=== PATIENT | female | born 1975 | race Caucasian/White ===

== ENCOUNTER 2023-10-18 07:25 | Outpatient (CLI) | payer OTHER, SELFPAY ==
[2023-10-18 08:07] LABS: Basophils Percent Auto 0.3 % (0.2-1.2); Eosinophils Absolute Auto 0.4 K/mm3 (0-0.3); Eosinophils Percent Auto 2.8 % (0-4.4); Hematocrit 39.4 % (37.0-47.0); Hemoglobin 11.5 g/dL (12.0-15.0); Immature Granulocyte Absolute 0.05 K/mm3 (0.00-0.031); Immature Granulocyte Percent A 0.4 % (0-0.5); Lymphocytes Absolute Auto 3.04 K/mm3 (0.9-3.2); Lymphocytes Percent Auto 24.3 % (18.3-44.2); Mean Corpuscular HGB Conc 29.2 g/dl (32-36); Mean Corpuscular Hemoglobin 25.2 pg (26-34); Mean Corpuscular Volume 86.2 fl (80-100); Monocytes Absolute Auto 0.6 K/mm3 (0.1-0.6); Monocytes Percent Auto 4.9 % (2.6-8.5); Neutrophils Absolute Auto 8.4 K/mm3 (1.3-6.7); Neutrophils Percent Auto 67.3 % (45.5-73.1); Platelet Count Result 319 k/mm3 (150-375); Red Blood Count 4.57 M/mm3 (4.2-5.4); Red Cell Distribution Width 14.7 % (11.5-14.5); White Blood Count 12.5 K/mm3 (4.5-10.0)
[2023-10-18 08:14] LABS: Alanine Aminotransferase 42 U/L (6-35); Albumin Level 4.3 g/dL (3.5-5.1); Alkaline Phosphatase 100 U/L (38-126); Anion Gap 11 mmol/L (8-16); Aspartate Amino Transferase 38 U/L (14-36); Bilirubin,Total 0.5 mg/dL (0.2-1.3); Blood Urea Nitrogen 10 mg/dL (7-17); Calcium 9.4 mg/dL (8.4-10.2); Carbon Dioxide 25 mmol/L (22-30); Chloride 101 mmol/L (98-107); Cholesterol 136 mg/dL (0-200); Estimated Glomerular Filt Rate > 60; Glucose 171 mg/dL (65-110); HDL Direct 27 mg/dL; Potassium 4.5 mmol/L (3.4-5.0); Sodium 137 mmol/L (137-145); Triglycerides 172 mg/dL (<150)
[2023-10-18 08:25] LABS: LDL Cholesterol Direct 85 mg/dL
[2023-10-18 08:37] LABS: Creatinine Urine 68.8 mg/dL
[2023-10-18 08:42] LABS: Iron 42 ug/dL (37-170)
[2023-10-18 08:45] LABS: MALB Creatinine Ratio < 8.7 mg/g (0-30); Microalbumin Urine Random < 6.0 mg/L (0-16.7)
[2023-10-18 08:53] LABS: Vitamin D 25 Hydroxy 41.5 ng/mL
[2023-10-18 09:36] LABS: Hypochromasia 1+ (NORMAL); Platelet Estimate Adequate (Adequate); Schistocytes None Seen (NORMAL)
== END 2023-10-18 07:26 | disposition home or self-care (01) ==
PROVIDERS: PCP Student in an Organized Health Care Education/Training Program; Visit Provider Student in an Organized Health Care Education/Training Program
DX: Z00.00 Encounter for general adult medical examination without abnormal findings (principal); Z13.220 Encounter for screening for lipoid disorders; Z13.29 Encounter for screening for other suspected endocrine disorder; Z13.228 Encounter for screening for other metabolic disorders; Z13.0 Encounter for screening for diseases of the blood and blood-forming organs and certain disorders involving the immune mechanism; E55.9 Vitamin D deficiency, unspecified; E61.1 Iron deficiency; E11.40 Type 2 diabetes mellitus with diabetic neuropathy, unspecified
CPT/HCPCS: 36415; 80053; 80061; 82043; 82306; 82728; 83540; 84443; 85025

== ENCOUNTER 2023-11-13 08:07 | Outpatient (CLI) | payer OTHER, SELFPAY ==
--- NOTE | ~2023-11-13 | US_ITS ---
US right upper quadrant DATE: 11/13/2023 INDICATION: Elevated liver enzymes TECHNIQUE: Real-time imaging of liver, pancreas, common bile duct COMPARISON: None FINDINGS: History of cholecystectomy. There is hepatic steatosis. Normal hepatopedal portal venous flow direction. No hepatic or pancreatic space-occupying mass lesion is detected. No intrahepatic or extrahepatic bile duct dilatation. The common bile duct measures 4 mm. IMPRESSION: Hepatic steatosis Status post cholecystectomy Reviewed, dictated and finalized at Location [facility]. Reviewed, dictated and finalized at location L. OFFICER ASSISTANT
== END 2023-11-13 08:08 ==
LOC: MICIMG 08:08
PROVIDERS: PCP Student in an Organized Health Care Education/Training Program; Visit Provider Student in an Organized Health Care Education/Training Program
DX: R74.8 Abnormal levels of other serum enzymes (principal); K76.0 Fatty (change of) liver, not elsewhere classified; Z90.49 Acquired absence of other specified parts of digestive tract
CPT/HCPCS: 76705

== ENCOUNTER 2024-02-06 16:48 | Outpatient (CLI) | payer OTHER, SELFPAY ==
[2024-02-06 17:42] LABS: Basophils Absolute Auto 0.1 K/mm3 (0.0-0.1); Basophils Percent Auto 0.4 % (0.2-1.2); Eosinophils Absolute Auto 0.2 K/mm3 (0-0.3); Eosinophils Percent Auto 1.2 % (0-4.4); Hematocrit 38.3 % (37.0-47.0); Hemoglobin 11.7 g/dL (12.0-15.0); Immature Granulocyte Absolute 0.03 K/mm3 (0.00-0.031); Immature Granulocyte Percent A 0.2 % (0-0.5); Immature Reticulocyte Fraction 14.7 % (3.0-15.9); Lymphocytes Absolute Auto 4.79 K/mm3 (0.9-3.2); Lymphocytes Percent Auto 39.3 % (18.3-44.2); Mean Corpuscular HGB Conc 30.5 g/dl (32-36); Mean Corpuscular Hemoglobin 26.4 pg (26-34); Mean Corpuscular Volume 86.5 fl (80-100); Mean Platelet Volume 9.6 fl (7.4-10.4); Monocytes Absolute Auto 0.6 K/mm3 (0.1-0.6); Monocytes Percent Auto 5.2 % (2.6-8.5); Neutrophils Absolute Auto 6.5 K/mm3 (1.3-6.7); Neutrophils Percent Auto 53.7 % (45.5-73.1); Platelet Count Result 304 k/mm3 (150-375); Red Blood Count 4.43 M/mm3 (4.2-5.4); Red Cell Distribution Width 15.7 % (11.5-14.5); Reticulocyte Hemoglobin Conten 32.3 pg (28.2-36.6); Reticulocyte Percent 1.67 % (0.7-4.3); Reticulocytes Absolute 0.07 10^6/uL (0.02-0.10); White Blood Count 12.2 K/mm3 (4.5-10.0)
[2024-02-06 18:10] LABS: Alanine Aminotransferase 45 U/L (6-35); Albumin Level 4.5 g/dL (3.5-5.1); Alkaline Phosphatase 86 U/L (38-126); Anion Gap 8 mmol/L (4-12); Aspartate Amino Transferase 31 U/L (14-36); Bilirubin,Total 0.7 mg/dL (0.2-1.3); Blood Urea Nitrogen 11 mg/dL (7-17); Calcium 10.5 mg/dL (8.4-10.2); Carbon Dioxide 28 mmol/L (22-30); Chloride 103 mmol/L (98-107); Cholesterol 142 mg/dL (0-200); Estimated Glomerular Filt Rate > 60; Glucose 99 mg/dL (65-110); HDL Direct 32 mg/dL; Potassium 4.1 mmol/L (3.4-5.0); Sodium 139 mmol/L (137-145); Triglycerides 153 mg/dL (<150)
[2024-02-06 18:21] LABS: LDL Cholesterol Direct 91 mg/dL
[2024-02-06 19:52] LABS: Iron 60 ug/dL (37-170)
[2024-02-06 20:01] LABS: Percent Iron Saturation 19 % (20-50)
== END 2024-02-06 16:49 | disposition home or self-care (01) ==
PROVIDERS: PCP Student in an Organized Health Care Education/Training Program; Visit Provider Internal Medicine Hematology & Oncology
DX: E78.00 Pure hypercholesterolemia, unspecified (principal); D72.829 Elevated white blood cell count, unspecified; D64.9 Anemia, unspecified; E53.8 Deficiency of other specified B group vitamins; E61.1 Iron deficiency
CPT/HCPCS: 36415; 80053; 80061; 82607; 82728; 83540; 83550; 85025; 85046

== ENCOUNTER 2024-05-06 02:19 | Day surgery (SDC) | payer OTHER, SELFPAY ==
[2024-04-22 13:26] VITALS: BMI 40.3
[2024-05-06 13:08] VITALS: BP 140/62; PULSE 75; RESP 16; TEMP 36.3; O2SAT 100; BMI 41.0
--- NOTE | 2024-05-06 13:19 | P.PNAN_ITS ---
Anes - Initial Pre Proc Eval Procedure: Operation Date: 05/06/24 14:30 Proposed Procedures p Esophagogastroduodenoscopy & Colonoscopy - Dhruv Asencio MD Date/Time: 05/06/24 13:19 Surgeon: Dhruv Asencio MD Pre Op Diagnosis: Iron deficiency anemia unspecified, Deficiency of Patient Data Age: 48 Gender: F Height: 1.57 m Weight: 100 kg Allergies Allergy/AdvReac Type Severity Reaction Status Date / Time No Known Allergies Allergy Mild Verified 05/06/24 13:17 Home Medications Medication Instructions Recorded Confirmed Type atorvastatin 10 mg tablet 10 mg PO DAILY 03/13/24 05/06/24 History dulaglutide 3 mg/0.5 mL 3 mg subcut WEEKLY 03/13/24 05/06/24 History subcutaneous pen injector (Trulicity) glyburide 5 mg tablet 5 mg PO TID 03/13/24 05/06/24 History lisinopril 10 mg tablet 10 mg PO BID 03/13/24 05/06/24 History metformin 500 mg tablet 1,000 mg PO BID 03/13/24 05/06/24 History Patient hx anesthesia problems: none Family hx anesthesia problems: none Results Review: All pre-operative results and documents have been reviewed as part of the pre- operative evaluation. [facility] Past Medical History Medical History delivery delivered Cholecystectomy planned Diabetes GERD (gastroesophageal reflux disease) History of hypertension Sleep apnea Social History Social History Smoking status: Never smoker Alcohol intake: never Alcohol use details: social Substance use: never Substance use type: does not use Living arrangements: alone Spiritual care concerns: No Anes - Eval Final PreProcedure Day of Procedure 05/06/24 13:19 Patient weight: morbidly obese Heart: regular rate and rhythm Lungs: clear to auscultation Airway: Mallampati scale class III Neurological: alert and oriented Last oral intake: >/= 8 hours ASA classification: III Emergent: no Anesthetic plan: proceed Anesthesia type and monitoring: general GIVS and standard monitoring Results Review: All pre-operative results and documents have been reviewed as part of the pre- operative evaluation. Informed Consent: The patient's anesthetic plan and its attendant risks and benefits were discussed with the patient/family/POA. Questions were solicited and answers provided to the satisfaction of the patient/family/POA.
[2024-05-06 13:22] LABS: Glucose Point of Care 78 mg/dl (65-105)
[2024-05-06] MEDS: LACTATED RINGERS 1,000 ML 150 ML IV CONT (13:28)
--- NOTE | 2024-05-06 14:08 | PM.HPGS ---
History of Present Illness History of Present Illness Consent: Risks, benefits, and alternatives have been discussed and questions answered. Patient agrees to proceed with procedure. Chief complaint: Iron deficiency anemia unspecified, Deficiency of Narrative: Radha Gatica is a 48 year old female with mild NIDA, hgb 12, never had scopes, denies overt gib Review of Systems Review of Systems: All systems reviewed & are unremarkable except as noted in HPI and below PMFSH Past Medical History Medical History delivery delivered Cholecystectomy planned Diabetes GERD (gastroesophageal reflux disease) History of hypertension Sleep apnea Social History Social History Smoking status: Never smoker Alcohol intake: never Alcohol use details: social Substance use: never Substance use type: does not use Living arrangements: alone Spiritual care concerns: No Meds Home Medications and Allergies Home Medications Medication Instructions Recorded Confirmed Type atorvastatin 10 mg tablet 10 mg PO DAILY 03/13/24 05/06/24 History dulaglutide 3 mg/0.5 mL 3 mg subcut WEEKLY 03/13/24 05/06/24 History subcutaneous pen injector (Trulicity) glyburide 5 mg tablet 5 mg PO TID 03/13/24 05/06/24 History lisinopril 10 mg tablet 10 mg PO BID 03/13/24 05/06/24 History metformin 500 mg tablet 1,000 mg PO BID 03/13/24 05/06/24 History Allergies Allergy/AdvReac Type Severity Reaction Status Date / Time No Known Allergies Allergy Mild Verified 05/06/24 13:17 Vital Signs Vital Signs - 24 hr 05/06/24 13:08 Temperature 97.3 F L Pulse Rate 75 Respiratory Rate 16 Blood Pressure 140/62 Pulse Oximetry 100 Oxygen Delivery Room Air Exam Const: General: comfortable, no acute distress and obese HENMT: Face/Nose/Sinus: Normal nares present Eyes: General: appearance normal, both eyes and all related structures Neck: Neck: no JVD Resp: Auscultation: clear to auscultation bilaterally Cardio: Rate: regular rate Rhythm: regular rhythm GI: Inspection: non-distended GI Palp: Yes Soft to palpation Skin: General skin exam: normal color Neuro: General: gait normal Speech: normal speech Extrem: General: normal to inspection Psych: Mental Status: mental status grossly normal Assessment and Plan Assessment and plan (1) NIDA (iron deficiency anemia): Qualifiers: Iron deficiency anemia type: unspecified iron deficiency Qualified Code(s): D50.9 - Iron deficiency anemia, unspecified Code(s): D50.9 - Iron deficiency anemia, unspecified Status: Acute Assessment and Plan: scopes to assess if gi source (2) Encounter for screening colonoscopy: Code(s): Z12.11 - Encounter for screening for malignant neoplasm of colon Status: Acute
[2024-05-06] MEDS: BENZOCAINE (*SP) 60 ML SPRAY CAN (HURRICAINE) 1 SPRAY MUCOUS MEM (14:17)
--- NOTE | 2024-05-06 14:28 | SUR.OPER ---
EGD start 1419 end 1423, Colonoscopy start 1428
[2024-05-06 14:40] VITALS: BP 97/53; PULSE 72; RESP 29; O2SAT 100
[2024-05-06 14:50] VITALS: BP 100/50; PULSE 77; RESP 23; O2SAT 100
[2024-05-06 15:00] VITALS: BP 110/62; PULSE 75; RESP 18; O2SAT 100
== END 2024-05-06 15:11 | disposition home or self-care (01) ==
PROVIDERS: PCP Student in an Organized Health Care Education/Training Program; Referring Provider Nurse Practitioner Family; Visit Provider Internal Medicine Gastroenterology
PROC: 0DJ08ZZ Inspection of Upper Intestinal Tract, Via Natural or Artificial Opening Endoscopic (ICD-10-PCS; CPT 43235; principal; 2024-05-06 14:30)
DX: Z12.11 Encounter for screening for malignant neoplasm of colon (principal); D12.3 Benign neoplasm of transverse colon; K64.8 Other hemorrhoids; K29.50 Unspecified chronic gastritis without bleeding; D50.9 Iron deficiency anemia, unspecified; E11.9 Type 2 diabetes mellitus without complications; K21.9 Gastro-esophageal reflux disease without esophagitis; I10 Essential (primary) hypertension
CPT/HCPCS: 43239; 45385; 82948; 88305; J2001; J2704; J7120

== ENCOUNTER 2024-05-12 17:03 | Outpatient (CLI) | payer OTHER, SELFPAY ==
[2024-05-12 17:51] LABS: Basophils Percent Auto 0.4 % (0.2-1.2); Eosinophils Absolute Auto 0.2 K/mm3 (0-0.3); Eosinophils Percent Auto 2.3 % (0-4.4); Hematocrit 38.3 % (37.0-47.0); Immature Granulocyte Absolute 0.03 K/mm3 (0.00-0.031); Immature Granulocyte Percent A 0.3 % (0-0.5); Immature Reticulocyte Fraction 21.5 % (3.0-15.9); Lymphocytes Absolute Auto 4.06 K/mm3 (0.9-3.2); Lymphocytes Percent Auto 39.7 % (18.3-44.2); Mean Corpuscular HGB Conc 31.3 g/dl (32-36); Mean Corpuscular Hemoglobin 28.1 pg (26-34); Mean Corpuscular Volume 89.7 fl (80-100); Mean Platelet Volume 9.2 fl (7.4-10.4); Monocytes Absolute Auto 0.6 K/mm3 (0.1-0.6); Neutrophils Absolute Auto 5.3 K/mm3 (1.3-6.7); Neutrophils Percent Auto 51.3 % (45.5-73.1); Platelet Count Result 262 k/mm3 (150-375); Red Blood Count 4.27 M/mm3 (4.2-5.4); Red Cell Distribution Width 13.5 % (11.5-14.5); Reticulocyte Hemoglobin Conten 32.3 pg (28.2-36.6); Reticulocyte Percent 1.83 % (0.7-4.3); Reticulocytes Absolute 0.08 10^6/uL (0.02-0.10); White Blood Count 10.2 K/mm3 (4.5-10.0)
[2024-05-12 18:06] LABS: Alanine Aminotransferase 46 U/L (6-35); Albumin Level 4.4 g/dL (3.5-5.1); Alkaline Phosphatase 89 U/L (38-126); Anion Gap 11 mmol/L (4-12); Aspartate Amino Transferase 33 U/L (14-36); Bilirubin,Total 0.6 mg/dL (0.2-1.3); Blood Urea Nitrogen 11 mg/dL (7-17); Calcium 9.4 mg/dL (8.4-10.2); Carbon Dioxide 31 mmol/L (22-30); Chloride 99 mmol/L (98-107); Estimated Glomerular Filt Rate > 60; Glucose 201 mg/dL (65-110); Potassium 3.9 mmol/L (3.4-5.0); Sodium 141 mmol/L (137-145)
[2024-05-13 04:48] LABS: Iron 60 ug/dL (37-170)
== END 2024-05-12 17:04 | disposition home or self-care (01) ==
LOC: ANHLAB 17:06
PROVIDERS: PCP Student in an Organized Health Care Education/Training Program; Visit Provider Internal Medicine Hematology & Oncology
DX: E53.8 Deficiency of other specified B group vitamins (principal); D50.9 Iron deficiency anemia, unspecified
CPT/HCPCS: 36415; 80053; 82607; 82728; 83540; 85025; 85046

== ENCOUNTER 2024-08-30 09:25 | Outpatient (CLI) | payer OTHER, SELFPAY ==
[2024-08-30 10:22] LABS: Basophils Percent Auto 0.4 % (0.2-1.2); Eosinophils Absolute Auto 0.2 K/mm3 (0-0.3); Eosinophils Percent Auto 1.5 % (0-4.4); Hematocrit 42.4 % (37.0-47.0); Hemoglobin 13.5 g/dL (12.0-15.0); Immature Granulocyte Absolute 0.04 K/mm3 (0.00-0.031); Immature Granulocyte Percent A 0.4 % (0-0.5); Immature Reticulocyte Fraction 14.4 % (3.0-15.9); Lymphocytes Absolute Auto 3.83 K/mm3 (0.9-3.2); Lymphocytes Percent Auto 33.7 % (18.3-44.2); Mean Corpuscular HGB Conc 31.8 g/dl (32-36); Mean Corpuscular Hemoglobin 28.2 pg (26-34); Mean Corpuscular Volume 88.7 fl (80-100); Mean Platelet Volume 9.5 fl (7.4-10.4); Monocytes Absolute Auto 0.5 K/mm3 (0.1-0.6); Monocytes Percent Auto 4.1 % (2.6-8.5); Neutrophils Absolute Auto 6.8 K/mm3 (1.3-6.7); Neutrophils Percent Auto 59.9 % (45.5-73.1); Platelet Count Result 336 k/mm3 (150-375); Red Blood Count 4.78 M/mm3 (4.2-5.4); Red Cell Distribution Width 12.8 % (11.5-14.5); Reticulocyte Hemoglobin Conten 31.4 pg (28.2-36.6); Reticulocyte Percent 1.78 % (0.7-4.3); Reticulocytes Absolute 0.09 10^6/uL (0.02-0.10); White Blood Count 11.4 K/mm3 (4.5-10.0)
[2024-08-30 10:39] LABS: Alanine Aminotransferase 54 U/L (6-35); Albumin Level 4.5 g/dL (3.5-5.1); Alkaline Phosphatase 94 U/L (38-126); Anion Gap 11 mmol/L (4-12); Aspartate Amino Transferase 46 U/L (14-36); Bilirubin,Total 0.5 mg/dL (0.2-1.3); Blood Urea Nitrogen 11 mg/dL (7-17); Calcium 9.6 mg/dL (8.4-10.2); Carbon Dioxide 27 mmol/L (22-30); Chloride 102 mmol/L (98-107); Cholesterol 145 mg/dL (0-200); Estimated Glomerular Filt Rate > 60; Glucose 152 mg/dL (65-110); HDL Direct 32 mg/dL; Potassium 4.2 mmol/L (3.4-5.0); Sodium 140 mmol/L (137-145); Triglycerides 243 mg/dL (<150)
[2024-08-30 10:44] LABS: Creatinine Urine 86.2 mg/dL
[2024-08-30 10:50] LABS: LDL Cholesterol Direct 78 mg/dL
[2024-08-30 11:05] LABS: Iron 60 ug/dL (37-170)
[2024-08-30 11:11] LABS: MALB Creatinine Ratio < 7.0 mg/g (0-30); Microalbumin Urine Random < 6.0 mg/L (0-16.7)
[2024-08-30 11:11] LABS: Percent Iron Saturation 18 % (20-50)
== END 2024-08-30 09:26 | disposition home or self-care (01) ==
LOC: ANHLAB 09:32
PROVIDERS: PCP Student in an Organized Health Care Education/Training Program; Referring Provider Student in an Organized Health Care Education/Training Program; Visit Provider Internal Medicine Hematology & Oncology
DX: Z00.00 Encounter for general adult medical examination without abnormal findings (principal); Z13.220 Encounter for screening for lipoid disorders; Z13.29 Encounter for screening for other suspected endocrine disorder; Z13.228 Encounter for screening for other metabolic disorders; Z13.0 Encounter for screening for diseases of the blood and blood-forming organs and certain disorders involving the immune mechanism; E11.40 Type 2 diabetes mellitus with diabetic neuropathy, unspecified; D72.829 Elevated white blood cell count, unspecified; D64.9 Anemia, unspecified; E53.8 Deficiency of other specified B group vitamins; E61.1 Iron deficiency
CPT/HCPCS: 36415; 80053; 80061; 82043; 82306; 82607; 82728; 82784; 83540; 83550; 84443; 85025; 85046; 86364

== ENCOUNTER 2024-12-27 08:03 | Outpatient (CLI) | payer OTHER, SELFPAY ==
[2024-12-27 08:48] LABS: Basophils Percent Auto 0.4 % (0.2-1.2); Eosinophils Absolute Auto 0.7 K/mm3 (0-0.3); Eosinophils Percent Auto 6.1 % (0-4.4); Hematocrit 41.8 % (37.0-47.0); Hemoglobin 13.2 g/dL (12.0-15.0); Immature Granulocyte Absolute 0.04 K/mm3 (0.00-0.031); Immature Granulocyte Percent A 0.4 % (0-0.5); Lymphocytes Absolute Auto 3.23 K/mm3 (0.9-3.2); Mean Corpuscular HGB Conc 31.6 g/dl (32-36); Mean Corpuscular Hemoglobin 28.4 pg (26-34); Mean Corpuscular Volume 89.9 fl (80-100); Mean Platelet Volume 9.3 fl (7.4-10.4); Monocytes Absolute Auto 0.5 K/mm3 (0.1-0.6); Monocytes Percent Auto 4.4 % (2.6-8.5); Neutrophils Absolute Auto 6.6 K/mm3 (1.3-6.7); Neutrophils Percent Auto 59.7 % (45.5-73.1); Platelet Count Result 325 k/mm3 (150-375); Red Blood Count 4.65 M/mm3 (4.2-5.4); Red Cell Distribution Width 13.2 % (11.5-14.5); White Blood Count 11.1 K/mm3 (4.5-10.0)
[2024-12-27 08:54] LABS: Alanine Aminotransferase 54 U/L (6-35); Albumin Level 4.4 g/dL (3.5-5.1); Alkaline Phosphatase 100 U/L (38-126); Anion Gap 13 mmol/L (4-12); Aspartate Amino Transferase 44 U/L (14-36); Bilirubin,Total 0.6 mg/dL (0.2-1.3); Blood Urea Nitrogen 15 mg/dL (7-17); Calcium 9.7 mg/dL (8.4-10.2); Carbon Dioxide 26 mmol/L (22-30); Chloride 100 mmol/L (98-107); Estimated Glomerular Filt Rate > 60; Glucose 152 mg/dL (65-110); Potassium 4.3 mmol/L (3.4-5.0); Sodium 139 mmol/L (137-145)
[2024-12-27 09:04] LABS: Iron 57 ug/dL (37-170)
[2024-12-27 09:13] LABS: Percent Iron Saturation 16 % (20-50)
[2024-12-27 09:55] LABS: Folic Acid 14.8 ng/mL (2.76->20)
== END 2024-12-27 08:04 | disposition home or self-care (01) ==
PROVIDERS: PCP Student in an Organized Health Care Education/Training Program; Referring Provider Student in an Organized Health Care Education/Training Program
DX: D64.9 Anemia, unspecified (principal); D72.829 Elevated white blood cell count, unspecified; E53.8 Deficiency of other specified B group vitamins; R74.8 Abnormal levels of other serum enzymes
CPT/HCPCS: 36415; 80053; 82248; 82607; 82728; 82746; 83540; 83550; 85025

== ENCOUNTER 2025-06-01 16:43 | Outpatient (CLI) | payer OTHER, SELFPAY ==
--- OUTSIDE RECORDS SUMMARY | 2025-06-01 16:50 | XMS_ITS | Clinical Summary ---
Author Organization [facility] Address [address] [place] [address] Phone Care Team Providers Care Vp Customer Development Name Role Phone Ravi Spaulding Perfecto CASANOVA Primary Care Provider + Yeni Orellana MD Unavailable Allergies No known active allergies Medications metFORMIN (GLUCOPHAGE) 1000 MG Tablet TAKE 1 TABLET (1,000 MG TOTAL) BY MOUTH 2 (TWO) TIMES DAILY WITH MEALS 4 Active lisinopril (PRINIVIL, ZESTRIL) 10 MG Tablet Take 10 mg by mouth 2 times daily. 4 Active glyBURIDE (DIABETA) 5 MG Tablet TAKE 2 TABLETS BY MOUTH IN THE MORNING AND 1 TABLET IN THE EVENING WITH MEALS 3 Active atorvastatin (LIPITOR) 10 MG Tablet Take 1 Tablet by mouth nightly. 4 Active Ferrous Sulfate 325 (65 Fe) MG Tablet Delayed Response Take 1 Tablet by mouth daily. 3 Active dulaglutide (Trulicity) 3 MG/0.5ML Solution Pen-injector 3 mg by Subcutaneous route. 3 Active Cholecalciferol (VITAMIN D-3 PO) Take by mouth. Activ e Cyanocobalamin 1000 MCG Tablet Take 1,000 mcg by mouth daily. Active Blood Glucose Monitoring Suppl (ONE TOUCH ULTRA 2) w/Device Kit Check blood sugar once daily in AM when fasting 4 Active Glucose Blood Strip Check blood sugar once daily in AM when fasting 4 Active ONE TOUCH ULTRASOFT LANCETS Misc Check blood sugar once daily in AM when fasting 4 Active Active Problems Problem Noted Date Diagnosed Date Elevated blood pressure reading 09/18/2024 Iron deficiency anemia, unspecified 12/17/2023 Anemia 12/13/2023 Iron deficiency 12/13/2023 Hypertension Family History Medical History Relation Name Comments Cancer Father colon and prost ate Diabetes Father Multiple Sclerosis Father Cancer Paternal Grandfather lung Parkinsonism Paternal Grandmother Relation Name Status Comments Father Paternal Grandfather Paternal Grandmother Social History Tobacco Use Types Packs/Day Years Used Date Smoking Tobacco: Never Smokeless Tobacco: Never Tobacco Cessation:Counseling Given: Not Answered Alcohol Use Standard Drinks/Week Comments Never 0 (1 standard drink = 0.6 oz pur e alcohol) Comments Unknown Sex and Gender Information Value Date Recorded Sex Assigned at Not on file 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 Gender Identity Not on file Sexual Orientation Not on file Last Filed Vital Signs Vital Sign Reading Time Taken Comments Blood Pressure 130/74 01/15/2025 8:06 AM CDT Pulse 85 01/15/2025 8:06 AM CDT Temperature 36.6 C (97.8 F) 01/15/2025 8:06 AM CDT Respiratory Rate 18 01/15/2025 8:06 AM CDT Oxygen Saturation 96% 01/15/2025 8:06 AM CDT Inhaled Oxygen Concentration - - Weight 101.2 kg (223 lb) 01/15/2025 8:06 AM CDT Height 157.5 cm (5' 2) 01/15/2025 8:06 AM CDT Body Mass Index 40.79 01/15/2025 8:06 AM CDT Plan of Treatment Upcoming Encounters Date Type Department Care Team (Late st Contact Info) Description 07/16/2025 8:00 AM CDT [facility] Visit [facility] [address] [address] Yeni Orellana MD [address] [place] [address] [phone] Health Maintenance Due Date Last Done Comments Hepatitis B Immunization (1 of 3 - 19+ 3-dose series) 1992 HPV/Cotest 2003 Cologuard 2018 Colonoscopy 2018 Colorectal Cancer Screening 2018 Immunochemical Fecal Occult Blood 2018 Cervical Cancer Screening ([facility]S) 03/18/2024 Pap Smear 03/18/2024 03/18/2021 SARS-COV-2 Immunization (3 - season) 2024 05/22/2022, 04/20/2022 Zoster Immunization (2 of 2) 01/30/2025 12/05/2024 Influenza Immunization (#1) 06/29/202507/29, 07/28/2024, 08/24/2023, Additional history exists Mammogram 08/16/2025 08/16/2024, 07/29, 08/19/2022, Additional history exists Respiratory Syncytial Virus (RSV) Immunization (Adult) (1 - 1-dose 75+ series) 2048 Hepatitis C Virus (HCV) Screening Completed 06/28/2022 Pneumococcal Immunization (50+ years) Completed 04/24/2024, 12/24/2019 Pneumococcal Immunization Combined Discontinued 04/24/2024, 12/24/2019 DTaP/Tdap/Td Immunization Discontinued 07/22/2024, TdaP Immunization Completed 07/22/2024, 04/25/2014 Human Papillomavirus (HPV) Immunization Aged Out No longer eligible based on patient's age to complete this topic Meningococcal Immunization (ACWY) Aged Out No longer eligible based on patient's age to complete this topic Rotavirus Immunization Aged Out No lo nger eligible based on patient's age to complete this topic Insurance Care Teams Vp Customer Development Relationship Specialty Start Date End Date Ravi Spaulding DO [address] [place] [address] PCP - General Family Medicine 11/06/23 Yeni Orellana MD [address] [place] [id number] Consulting Physician Oncology 11/06/23
[2025-06-01 17:21] LABS: Hematocrit 39.9 % (37.0-47.0); Hemoglobin 12.4 g/dL (12.0-15.0); Immature Granulocyte Percent A 0.3 % (0-0.5); Lymphocytes Absolute Auto 4.59 K/mm3 (0.9-3.2); Mean Corpuscular HGB Conc 31.1 g/dl (32-36); Mean Corpuscular Hemoglobin 27.6 pg (26-34); Mean Corpuscular Volume 88.9 fl (80-100); Nucleated Red Blood Cells Absolute Auto 0.000 K/mm3 (0.0-0.012); Nucleated Red Blood Cells Perc 0.0 % (0.0-0.2); Platelet Count Result 319 k/mm3 (150-375); Red Blood Count 4.49 M/mm3 (4.2-5.4); White Blood Count 12.4 K/mm3 (4.5-10.0)
[2025-06-01 17:36] LABS: Alanine Aminotransferase 73 U/L (6-35); Albumin Level 4.4 g/dL (3.5-5.1); Alkaline Phosphatase 79 U/L (38-126); Anion Gap 12 mmol/L (4-12); Aspartate Amino Transferase 48 U/L (14-36); Bilirubin,Total 0.4 mg/dL (0.2-1.3); Blood Urea Nitrogen 8 mg/dL (7-17); Calcium 9.9 mg/dL (8.4-10.2); Carbon Dioxide 29 mmol/L (22-30); Chloride 101 mmol/L (98-107); Cholesterol 198 mg/dL (0-200); Estimated Glomerular Filt Rate > 60; Glucose 149 mg/dL (65-110); HDL Direct 31 mg/dL; Potassium 3.7 mmol/L (3.4-5.0); Sodium 142 mmol/L (137-145); Total Protein 8.3 g/dL (6.3-8.2); Triglycerides 249 mg/dL (<150)
[2025-06-01 18:06] LABS: MALB Creatinine Ratio 11.5 mg/g (0-30)
[2025-06-01 18:16] LABS: Thyroid Stimulating Hormone Reflex 2.760 uIU/mL (0.465-4.68)
== END 2025-06-01 16:44 | disposition home or self-care (01) ==
LOC: ANHLAB 16:48
PROVIDERS: PCP Student in an Organized Health Care Education/Training Program; Visit Provider Student in an Organized Health Care Education/Training Program
DX: E11.40 Type 2 diabetes mellitus with diabetic neuropathy, unspecified (principal); E55.9 Vitamin D deficiency, unspecified; Z00.00 Encounter for general adult medical examination without abnormal findings; Z13.0 Encounter for screening for diseases of the blood and blood-forming organs and certain disorders involving the immune mechanism; Z13.220 Encounter for screening for lipoid disorders; Z13.228 Encounter for screening for other metabolic disorders; Z13.29 Encounter for screening for other suspected endocrine disorder
CPT/HCPCS: 36415; 80053; 80061; 82043; 82306; 84443; 85025

== ENCOUNTER 2025-06-30 16:40 | Outpatient (CLI) | payer OTHER, SELFPAY ==
--- OUTSIDE RECORDS SUMMARY | 2025-06-30 16:50 | XMS_ITS | Encounter Summary ---
Author Organization [facility] Address [facility] [place] [address] Care Team Providers Care Panel Edge Painter Name Role Phone Ravi Spaulding DO Primary Care Provider + Encounter Details Date Type Department Care Team (Late st Contact Info) Description 02/13/2022 [employer] Message Enc [facility] Family & Internal Medicine [facility] [address] [place] [address] Ravi Spaulding DO [address] [place] [address] Cpap Social History Tobacco Use Types Packs/Day Years Used Date Smoking Tobacco: Never Smokeless Tobacco: Never Alcohol Use Standard Drinks/Week Comments Yes 0 (1 standard drink = 0.6 oz pur e alcohol) ON OCCASION AUDIT-C Answer Date Recorded Frequency of Alcohol Consumption Monthly or less 10/30/2019 Average Number of Drinks 1 or 2 020 Frequency of Binge Drinking Never 11/2019 PHQ-2 Answer Date Recorded PHQ-2 Score - If the patient scores above 3, please move on to questions 3-9 0 01/17/2022 Comments No Sex and Gender Information Value Date Recorded Sex Assigned at Female 10/30/2019 4:05 PM REVIEW COORDINATOR Legal Sex Female 7:47 PM CDT Gender Identity Female 10/30/2019 4:05 PM REVIEW COORDINATOR Sexual Orientation Straight 10/30/2019 4: 05 PM REVIEW COORDINATOR 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 No / Unsure 01/26/2022 4:59 PM CDT documented as of this encounter Plan of Treatment Upcoming Encounters Date Type Department Care Team (Late st Contact Info) Description 07/15/2025 7:20 AM CDT Office Visit [facility] - [place] [address] [place] [address] Ravi Spaulding DO [address] [place] [address] 09/29/2025 8:20 AM REVIEW COORDINATOR Office Visit [facility] [address] [place] [address] Geovanny Rocha [address] [place] [address] documented as of this encounter Visit Diagnoses Not on filedocumented in this encounter Additional Health Concerns Assessment Noted Time PHQ-9 Depression Total Score: 0 01/18/20 22 7:14 AM CDT documented as of this encounter Care Teams Panel Edge Painter Relationship Specialty Start Date End Date Ravi Spaulding DO [address] [place] [id number] PCP - General FAMILY PRACTICE 12/24/19 documented as of this encounter
--- OUTSIDE RECORDS SUMMARY | 2025-06-30 16:50 | XMS_ITS | Encounter Summary ---
Author Organization [facility] Address [facility] [place] [address] Care Team Providers Care Carver And Checkerer Specials Name Role Phone Ravi Spaulding DO Primary Care Provider + Encounter Details Date Type Department Care Team (Late st Contact Info) Description 12/10/2022 [employer] Message Enc [facility] Family & Internal Medicine [facility] [address] [place] [phone] Ravi Spualding DO [address] [place] [address] Iron supplement Social History Tobacco Use Types Packs/Day Years [...] 3, please move on to questions 3-9 1 08/11/2022 Comments No Sex and Gender Information Value Date Recorded Sex Assigned at Female 10/30/2019 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 No / Unsure 11/10/2022 7:53 AM HOTEL ASSOCIATE documented as of this encounter Plan of Treatment Upcoming Encounters Date Type Department Care Team (Late st Contact Info) Description 07/15/2025 7:20 AM CDT Office Visit [facility] Family & Internal Medicine - [place] [address] [place] [address] Ravi Spaulding DO [address] [place] [address] 09/29/2025 8:20 AM HOTEL ASSOCIATE Office Visit [facility] - [facility] [address] [place] [address] Geovanny Rocha [address] [place] [address] documented as of this encounter Visit Diagnoses Not on filedocumented in this encounter Additional Health Concerns Assessment Noted Time PHQ-9 Depression Total Score: 1 08/11/20 22 8:42 AM CDT documented as of this encounter Care Teams Carver And Checkerer Specials Relationship Specialty Start Date End Date Ravi Spaulding DO [address] [place] [id number] PCP - General FAMILY PRACTICE 12/24/19 documented as of this encounter
--- OUTSIDE RECORDS SUMMARY | 2025-06-30 16:50 | XMS_ITS | Clinical Summary ---
Author Organization [facility] Address [address] [place] [address] Care Team Providers Care Bevel Mill Operator Name Role Phone Carlos Eduardo Wong Primary Care Provider + Allergies No known active allergies Medications ferrous sulfate EC 325 (65 Fe) MG tabletIndicatio ns:Iron deficiency TAKE 1 TABLET BY MOUTH EVERY DAY 30 tablet 2 01/25/2023 Active vitamin D3 (CHOLECALCIFERO L) 25 mcg tablet Take 2 tablets (2,000 Units total) by mouth daily. Active Glucose Blood test stripIndication s:Type 2 diabetes mellitus with diabetic neuropathy, without long-term current use of insulin ([facility]) Check blood sugar once daily in AM when fasting 100 strip 11 07/22/2024 Active Blood Glucose Monitoring Suppl (ONE TOUCH ULTRA 2) w/Device KitIndications: Type 2 diabetes mellitus with diabetic neuropathy, without long-term current use of insulin ([facility]) Check blood sugar once daily in AM when fasting 1 kit 07/22/2024 Active Lancets (ONETOUCH ULTRASOFT) lancetsIndicati ons:Type 2 diabetes mellitus with diabetic neuropathy, without long-term current use of insulin ([facility]) Check blood sugar once daily in AM when fasting 1 each 11 07/22/2024 Active glyBURIDE (DIABETA) 5 MG tabletIndicatio ns:Type 2 diabetes mellitus with diabetic neuropathy, without long-term current use of insulin ([facility]) TAKE 2 TABLETS BY MOUTH IN THE MORNING AND 1 TABLET IN THE EVENING WITH MEALS 270 tablet 1 11/14/2024 Active vitamin B-12 (CYANOCOBALAMIN ) (CYANOCOBALAMIN ) 1000 mcg tablet Take 1 tablet (1,000 mcg total) by mouth daily. Active lisinopril (PRINIVIL) 10 MG tabletIndicatio ns:HTN (hypertension) TAKE 1 TABLET BY MOUTH TWICE A DAY 180 tablet 3 01/07/2025 Active metFORMIN (GLUCOPHAGE) 1000 MG tabletIndicatio ns:Type 2 diabetes mellitus with diabetic neuropathy, without long-term current use of insulin ([facility]) TAKE 1 TABLET BY MOUTH TWICE A DAY WITH FOOD 60 tablet 2 05/04/2025 Active TRULICITY 3 MG/0.5ML injectionIndica tions:Type 2 diabetes mellitus with diabetic neuropathy, without long-term current use of insulin ([facility]) INJECT 3 MG UNDER THE SKIN ONCE PER WEEK 2 mL 2 05/12/2025 Active Active Problems Problem Noted Date Diagnosed Date B12 deficiency 01/23/2024 Iron deficiency anemia, unspecified 12/17/2023 Vitamin D deficiency 06/07/2020 BMI 40.0-44.9, adult 05/17/2020 Type 2 diabetes mellitus wit h diabetic neuropathy, without long-term current use of insulin ([facility]) 10/06/2019 Elevated transaminase level 09/10/2017 Acid reflux 09/07/2017 Vasovagal syncope 10/09/2016 Locking finger joint 07/09/2015 Hypertension 01/09/2014 Hypercholesterolemia 01/09/2014 Obese 01/09/2014 Resolved Problems Problem Noted Date Diagnosed Date Resolved Date Toenail fungus 10/06/2019 01/19/2023 Encounters Date Type Department Care Team Description 06/04/2025 Telephone [facility] Family & Internal Medicine [address] [address] Carlos Eduardo Wong, DO Appointment Reminder 06/02/2025 MyChart Message Enc [facility] Family & Internal Medicine [address] [address] Carlos Eduardo Wong, DO Labs for upcoming appointment 06/01/2025 Scan [employer]ideJar SRVCS Scanned, Doc Med Group Lab (SCAN) 04/30/2025 Telephone [facility] Pulmonology Specialty Clinic [facility] [address] [place] [address] Geovanny Rocha DO Reschedule from Last 3 Months Immunizations Immunization Administration Dates Next Due Fluzone 6 Months+ Quad (0.5 mL Prefilled Syringe) 08/29/2022,10/06/2019 Influenza (Generic) 08/08/2024,08/14/2016,2014 Influenza Adult (Generic) 07/28/2024,11/2022,07/24/2020,2017,09/07/2017 PFIZER COVID-19 (COLON CAP), MRNA, LNP-S, PF, 30 MCG/0.3 ML TERRANCE-SUCROSE, IM 05/22/2022,04/20/2022 PFIZER COVID-19 (ORIGINAL FORMULATION, PURPLE CAP) mRNA, LNP-S, PF, 30 MCG/0.3 ML DOSE 05/22/2022 Pneumococcal (Pneumovax 23) 12/24/2019 Pneumococcal (Prevnar 20) 04/24/2024 Shingrix 03/10/2025,12/05/2024 Tdap (Adacel) 07/22/2024 Tdap (Generic) 04/25/2014 Family History Medical History Relation Comments Colon Cancer Father Diabetes Father Multiple Sclerosis Father Prostate Cancer Father No Known Problems Mother Lung Cancer Paternal Grandfather Parkinson's Disease Paternal Grandmother Relation Status Comments Father Alive Mother Alive Paternal Grandfather Paternal Grandmother Social History Tobacco Use Types Packs/Day Years Used Date Smoking Tobacco: Never Passive Smoke Exposure: Never Smokeless Tobacco: Never Tobacco Cessation:Counseling Given: No Alcohol Use Standard Drinks/Week Comments Not Currently 0 (1 standard drink = 0.6 oz pur e alcohol) ON OCCASION AUDIT-C Answer Date Recorded Frequency of Alcohol Consumption Monthly or less 10/30/2019 Average Number of Drinks 1 or 2 020 Frequency of Binge Drinking Never 11/2019 PHQ-2 Answer Date Recorded Patient Health Questionnaire-2 Score 0 12/05/2024 Comments No Sex and Gender Information Value Date Recorded Sex Assigned at Female 10/30/2019 4:05 PM MEDTRONICS TECHNICIAN Legal Sex Female 7:47 PM CDT Gender Identity Female 10/30/2019 4:05 PM MEDTRONICS TECHNICIAN Sexual Orientation Straight 10/30/2019 4: 05 PM MEDTRONICS TECHNICIAN 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 file Last Filed Vital Signs Vital Sign Reading Time Taken Comments Blood Pressure 112/62 03/10/2025 7:18 AM CDT Pulse 90 03/10/2025 7:18 AM CDT Temperature 36.6 C (97.9 F) 03/10/2025 7:18 AM CDT Respiratory Rate 16 03/10/2025 7:18 AM CDT Oxygen Saturation 98% 03/10/2025 7:18 AM CDT Inhaled Oxygen Concentration - - Weight 100.9 kg (222 lb 8 oz) 03/10/2025 7:18 AM CDT Height 157.5 cm (5' 2) 03/10/2025 7:18 AM CDT Body Mass Index 40.7 03/10/2025 7:18 AM CDT Plan of Treatment Upcoming Encounters Date Type Department Care Team (Late st Contact Info) Description 07/15/2025 7:20 AM CDT Office Visit [facility] Family & Internal Medicine - [place] [address] [place] [address] Carlos Eduardo Wong DO [address] [place] [address] 09/29/2025 8:20 AM MEDTRONICS TECHNICIAN Office Visit [facility] - [facility] [address] [place] [address] Geovanny Rocha DO [address] [place] [address] Health Maintenance Due Date Last Done Comments Kidney Health Evaluation 1973 Hepatitis B Vaccines (1 of 3 - 19+ 3-dose series) 1992 Annual Physical 12/24/2020 12/24/2019 Lipid Panel 06/13/2023 06/13/2022, 08/0 12/2020, 11/26/2020, Additional history exists Cervical Cancer Screening Pap Smear (Age 30 to 64) Every 3 Years 03/18/2024 03/18/2021 Diabetes: Retinopathy Eye Exam 12/31/2024 01/01/2024, 12/12/2022, 09/08/2021, Additional history exists Mammogram Screening 08/16/2025 08/16/2024, 08/19/2022, 07/16/2021, Additional history exists Hemoglobin A1C 09/10/2025 03/10/2025, 02/0 04/2025, 09/04/2024, Additional history exists COVID-19 Vaccine (3 - Pfizer risk series) 03/10/2026 05/22/2022, 05/22/2022, 04/20/2022 Postponed from 06/19/2022 (Patient Refused) Cervical Cancer Screening Pap with HPV Testing (Age 30 to 64) Every 5 Years 03/18/2026 03/18/2021, 02/28/2018, 02/27/2018 Cervical Cancer Screening with HPV 03/18/2026 Colorectal Cancer Screening Colonoscopy (10 Years) 05/06/2029 05/06/2024 DTaP, Tdap and Td Vaccines (3 - Td or Tdap) 07/22/2034 07/22/2024, 04/25/2014 Colorectal Cancer Screening FIT-DNA (3 Years) Discontinued 02/01/2022, 02/01/2022 Hepatitis C Completed 06/28/2022 Pneumococcal Vaccine: 50+ Years Completed 04/24/2024, 12/24/2019 PHQ-2 (Physician [place]) Completed 12/05/2024 Zoster Vaccines Completed 03/10/2025, 12/05/2024 Meningococcal B Vaccine Aged Out No l onger eligible based on patient's age to complete this topic Meningococcal Vaccine Aged Out No adela kj eligible based on patient's age to complete this topic RSV Immunizations Under 20 Months Aged Out No longer eligible based on patient's age to complete this topic Procedures Procedure Name Priority Date/Time Associated Diagnosis Comments OUTSIDE LAB (SCAN ORDER) 06/01/2025 OUTSIDE LAB (SCAN ORDER) 06/01/2025 OUTSIDE LAB (SCAN ORDER) 06/01/2025 ALBUMIN URINE RANDOM W/CREATININE Routine 06/01/2025 Type 2 diabetes mellitus with diabetic neuropathy, without long-term current use of insulin (CMS/HCC HHS/HCC) Screening for lipid disorders Screening for endocrine, metabolic and immunity disorder Annual physical exam HEMOGLOBIN, GLYCOSYLATED Routine 03/10/2025 Type 2 diabetes mellitus with diabetic neuropathy, without long-term current use of insulin (CMS/HCC HHS/HCC) MG SCREENING W ZELALEM MARK DIGI Routine 08/16/2024 2:14 PM CDT Encounter for screening mammogram for malignant neoplasm of breast COLONOSCOPY GENERIC (SCAN ORDER) 05/06/2024 DIABETIC RETINOPATHY EXAM (POSITIVE)(SCAN ORDER) Routine 01/01/2024 HEPATITIS C ANTIBODY W/RFX TO HCV RNA Routine 06/28/2022 7:22 AM CDT Need for hepatitis C screening test LIPID PANEL Routine 06/13/2022 7:15 AM CDT Screening for lipid disorders Annual physical exam COLOGUARD (EXACT SCIENCE) Routine 02/01/2022 7:23 AM CDT Screening for colon cancer HPV MRNA E6/E7 Routine 03/18/2021 8:31 AM CDT CYTOPATH CERV/VAG THIN LAYER Routine 03/18/2021 8:31 AM CDT Well woman exam from Last 3 Months or Most Recently Relevant to Health Maintenance Results * OUTSIDE LAB (SCAN ORDER) (06/01/2025) Only the most recent of3 resultswithin the time period is included. 06/01/2025 [facility] Scanned SCANNING Final Resu lt * ALBUMIN URINE RANDOM W/CREATININE (06/01/2025) MICROALBUMIN (U) 14.4 [facility] CREATININE RANDOM (U) 125.2 [facility] MICROALB/CREAT 11.5 [facility] URINE SPECIMEN / Unknown 06/01/2025 us Carlos Eduardo Wong DO URINE ORDERABLES Final R esult Performing Organization Address City/[facility]/ZIP Co de Phone Number [facility] * HEMOGLOBIN, GLYCOSYLATED (03/10/2025) HGB A1C 6.9 % [facility] 03/10/2025 us Carlos Eduardo Wong DO LABORATORY Final Re sult Performing Organization Address City/[facility]/ZIP Co de Phone Number [facility] [address] [place] [address], [place] * MG SCREENING W ZELALEM MARK DIGI (08/16/2024 2:14 PM CDT) Anatomical Region Laterality Modality Breast Bilateral Mammography 08/18/2024 11:0 3 AM CDT Impressions 08/18/2024 11:05 AM CDT IMPRESSION: No suspicious mammographic findings. Recommendation: 1. Routine Screening, Bilateral Assessment: ACR BI-RADS 1 - NEGATIVE Ordered By: CARLOS EDUARDO WONG Interpreted By: Tommie Giron MD, 08/18/2024 11:03 AM Narrative 08/18/2024 11:05 AM CDT [address] [address] Examination: Screening bilateral mammogram Exam Date: 08/16/2024 1:58 PM Clinical history: Routine screening. Comparison: 08/19/2022, 07/16/2021 Technique: Digital screening mammography of both breasts was performed. Breast tomosynthesis acquisitions were obtained and reviewed. This study was read with the assistance of a computer-aided detection system. Tissue density: There are scattered areas of fibroglandular density. Findings: No suspicious masses, malignant appearing calcifications, skin thickening or other abnormalities are present. No significant change from the prior exam. Carlos Eduardo Wong DO MAMMO Final Re sult * COLONOSCOPY GENERIC (SCAN ORDER) (05/06/2024) 05/06/2024 [facility] Scanned SCANNING Final Resu lt * DIABETIC RETINOPATHY EXAM (POSITIVE) (01/01/2024) [facility] Scanned SCANNING Final Resu lt [facility] * HEPATITIS C ANTIBODY W/RFX TO HCV RNA ([facility] ONLY) (06/28/2022 7:22 AM CDT) HEPATITIS C AB NON-REACTI VE NON-REACT CATHY [facility] SIGNAL TO CUTOFF 0.04 <[address] [facility] Comment: HCV antibody was non-reactive. There is no laboratory evidence of HCV infection. In most cases, no further action is required. However, if recent HCV exposure is suspected, a test for HCV RNA (test code 23202) is suggested. For additional information please refer to http://education.Prong/faq/SEY71u6 (This link is being provided for informational/ educational purposes only.) 06/28/2022 7:22 AM CDT 06/29/2022 9:11 AM CDT Carlos Eduardo Wong DO LABORATORY Final Re sult [facility] [address] [place] [address] * (ABNORMAL) LIPID PANEL (06/13/2022 7:15 AM CDT) CHOLESTEROL 114 <200 mg/dL [facility] HDL 30(L) > OR = 50 mg/dL [facility] TRIGLYCERIDES 136 <150 mg/dL [facility] LDL (CALCULATED) 62 mg/dL (calc) [facility] Comment: Reference range: <100 Desirable range <100 mg/dL for primary prevention; <70 mg/dL for patients with CHD or diabetic patients with > or = 2 CHD risk factors. LDL-C is now calculated using the Iam-Dsouza calculation, which is a validated novel method providing better accuracy than the Friedewald equation in the estimation of LDL-C. Iam JOHNSON et al. ANÍBAL. 2013;310(19): 5264-1322 (http://education.[employer] Spark Technologies/faq/WDX148) CHOL/HDL RATIO 3.8 <5.0 (calc) [facility] NON HDL CHOLESTEROL 84 <130 mg/dL (calc) [facility] Comment: For patients with diabetes plus 1 major ASCVD risk factor, treating to a non-HDL-C goal of <100 mg/dL (LDL-C of <70 mg/dL) is considered a therapeutic option. 06/13/2022 7:15 AM CDT 06/14/2022 7:21 AM CDT Carlos Eduardo Wong DO LABORATORY Final Re sult [facility] [address] [place] [address] * COLOGUARD ([employer] SCIENCE) (02/01/2022 7:23 AM CDT) COLOGUARD RESULT Negative Negative [facility] [employer] (CLIA #:[id number]) Comment: NEGATIVE TEST RESULT. A negative Cologuard result indicates a low likelihood that a colorectal cancer (CRC) or advanced adenoma (adenomatous polyps with more advanced pre-malignant features) is present. The chance that a person with a negative Cologuard test has a colorectal cancer is less than 1 in 1500 (negative predictive value >99.9%) or has an advanced adenoma is less than 5.3% (negative predictive value 94.7%). These data are based on a prospective cross-sectional study of 10,000 individuals at average risk for colorectal cancer who were screened with both Cologuard and colonoscopy. (Renae Casas, N Engl J Med 2014;370(14):5467-5963) The normal value (reference range) for this assay is negative. COLOGUARD RE-SCREENING RECOMMENDATION: Periodic colorectal cancer screening is an important part of preventive healthcare for asymptomatic individuals at average risk for colorectal cancer. Following a negative Cologuard result, the [place] Cancer Society and U.S. Multi-Society Task Force screening guidelines recommend a Cologuard re-screening interval of 3 years. References: [place] Cancer Society Guideline for Colorectal Cancer Screening: https://www.cancer.org/cancer/mqgwr-sltwxa-gjdcad/qjrzgghwo-tpaaozpoi-uuuyvwj/ac s-rec ommendations.html.; Teja DK, Eugenio HONG, Hair SuárezK, Colorectal Cancer Screening: Recommendations for Physicians and Patients from the U.S. Multi-Society Task Force on Colorectal Cancer Screening , Am J Gastroenterology 2017; 112:4218-2490. TEST DESCRIPTION: Composite algorithmic analysis of stool DNA-biomarkers with hemoglobin immunoassay. Quantitative values of individual biomarkers are not reportable and are not associated with individual biomarker result reference ranges. Cologuard is intended for colorectal cancer screening of adults of either sex, 45 years or older, who are at average-risk for colorectal cancer (CRC). Cologuard has been approved for use by the U.S. FDA. The performance of Cologuard was established in a cross sectional study of average-risk adults aged 50-84. Cologuard performance in patients ages 45 to 49 years was estimated by sub-group analysis of near-age groups. Colonoscopies performed for a positive result may find as the most clinically significant lesion: colorectal cancer [4.0%], advanced adenoma (including sessile serrated polyps greater than or equal to 1cm diameter) [20%] or non- advanced adenoma [31%]; or no colorectal neoplasia [45%]. These estimates are derived from a prospective cross-sectional screening study of 10,000 individuals at average risk for colorectal cancer who were screened with both Cologuard and colonoscopy. (Imperiale T. et al, N Engl J Med 2014;370(14):0414-5177.) Cologuard may produce a false negative or false positive result (no colorectal cancer or precancerous polyp present at colonoscopy follow up). A negative Cologuard test result does not guarantee the absence of CRC or advanced adenoma (pre-cancer). The current Cologuard screening interval is every 3 years. ([place] Cancer Society and U.S. Multi-Society Task Force). Cologuard performance data in a 10,000 patient pivotal study using colonoscopy as the reference method can be accessed at the following location: www.Forsake.Glo Bags/results. Additional description of the Cologuard test process, warnings and precautions can be found at www.Loveland Technologiesrd.com. STOOL STOOL SPECIMEN / Unknown 02/01/2022 7:23 AM CDT 02/02/2022 11:57 AM CDT Carlos Eduardo Wong DO BODY FLUIDS AND STOOLS O RDERABLES Final Result [employer], [facility] [address] [place] [address], [employer] (CLIA #:[id number]) [address] [place] [address] * HPV MRNA E6/E7 (03/18/2021 8:31 AM CDT) HPV MRNA E6/E7 Not Detected Not Detected [employer] Comment: Methodology: Caregivers Homecare-Mediated Amplification This assay detects E6/E7 viral messenger RNA (mRNA) from 14 high-risk HPV types (16,18,31,33,35,39,45,51,52,56,58,59,66,68). The analytical performance characteristics of this assay have been determined by [employer]. The modifications have not been cleared or approved by the FDA. This assay has been validated pursuant to the CLIA regulations and is used for clinical purposes. For additional information, please refer to http://education.[employer].Glo Bags/faq/TCP940p0 (This link if provided for information/ educational purposes only.) 03/18/2021 8:31 AM CDT 03/21/2021 11:37 AM CDT Ariadna BARTON PATHOLOGY/CYTOLOGY ORDERABL ES Final Result Performing Organization Address [facility] Co de Phone Number [facility] [address] [phone] * Cytopath Cerv/Vag Thin Layer (03/18/2021 8:31 AM CDT) CLINICAL INFORMATION: REGULAR [facility] Clinical Information: 01/2021 [facility] Date of Last Pap INFORMATION NOT PROVIDED [facility] Previous Biopsy? INFORMATION NOT PROVIDED [facility] SOURCE (QST) Cervix, Endocervix [facility] STATEMENT OF ADEQUACY: [facility] Comment: Satisfactory for evaluation. Endocervical/transformation zone component present. PAP INTERPRETATION/RESU LTS Negative for intraepithelial lesion or malignancy. [facility] ACTING MANAGER [facility] Comment: MMW, CT(ASCP) CT screening location: [place] [address] [address] [place] [address] COMMENT: [facility] Comment: EXPLANATORY NOTE: The Pap is a screening test for cervical cancer. It is not a diagnostic test and is subject to false negative and false positive results. It is most reliable when a satisfactory sample, regularly obtained, is submitted with relevant clinical findings and history, and when the Pap result is evaluated along with historic and current clinical information. 03/18/2021 8:31 AM CDT 03/21/2021 11:37 AM CDT Ariadna BARTON PATHOLOGY/CYTOLOGY ORDERABL ES Final Result Performing Organization Address City/[facility]/ZIP Co de Phone Number [facility] [employer] [facility] [address] [phone] from Last 3 Months or Most Recently Relevant to Health Maintenance Insurance [employer] Care Teams Bevel Mill Operator Relationship Specialty Start Date End Date Carlos Eduardo Wong DO [address] [place] [id number] PCP - General FAMILY PRACTICE 12/24/19
--- OUTSIDE RECORDS SUMMARY | 2025-06-30 16:50 | XMS_ITS | Encounter Summary ---
Author Organization [facility] Address [facility] [place] [address] Care Team Providers Care Speech Teacher Name Role Phone Ravi Spaulding DO Primary Care Provider + Encounter Details Date Type Department Care Team (Late st Contact Info) Description 02/07/2022 [employer] Message Enc [facility] Medical Group Family & Internal Medicine [facility] [address] [place] [address] Ravi Spaulding DO [address] [place] [address] Jardiance Social History Tobacco Use Types Packs/Day Years [...] Sex Assigned at Female 10/30/2019 4:05 PM PRORATE CLERK Legal Sex Female 7:47 PM CDT Gender Identity Female 10/30/2019 4:05 PM PRORATE CLERK Sexual Orientation Straight 10/30/2019 4: 05 PM PRORATE CLERK 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 No / Unsure 01/26/2022 4:59 PM CDT documented as of this encounter Progress Notes * Ravi Spaulding DO - 02/14/2022 8:56 AM CDT Would pt be willing to try Ozempic or Trulicity? They are injections but may be cheaper than Rybelsus. * Ravi Spaulding DO - 02/08/2022 12:52 PM CDT Can we try to see if we can get a prior auth for Rybelsus? Pt is on metformin, glyburide, and had side effects with the SGLT2 Jardiance. documented in this encounter Plan of Treatment Upcoming Encounters Date Type Department Care Team (Late st Contact Info) Description 07/15/2025 7:20 AM CDT Office Visit [facility] Family & Internal Medicine - [place] [address] [place] [address] Ravi Spaulding DO [address] [place] [address] 09/29/2025 8:20 AM PRORATE CLERK Office Visit [facility] Multispecialty Care - [facility] [address] [place] [phone] Geovanny Rocha [address] [facility] [place] [address] documented as of this encounter Visit Diagnoses Not on filedocumented in this encounter Additional Health Concerns Assessment Noted Time PHQ-9 Depression Total Score: 0 01/18/20 22 7:14 AM CDT documented as of this encounter Care Teams Speech Teacher Relationship Specialty Start Date End Date Ravi Spaulding DO [address] [place] [address] PCP - General FAMILY PRACTICE 12/24/19 documented as of this encounter
--- OUTSIDE RECORDS SUMMARY | 2025-06-30 16:50 | XMS_ITS | Clinical Summary ---
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
--- OUTSIDE RECORDS SUMMARY | 2025-06-30 16:50 | XMS_ITS | Encounter Summary ---
Author Organization [facility] Address [facility] [place] [address] Care Team Providers Care Chilling Hood Operator Name Role Phone Ravi Spaulding DO Primary Care Provider + Encounter Details Date Type Department Care Team (Late st Contact Info) Description 07/07/2020 [employer] Message Enc [facility] Medical Group Family & Internal Medicine [facility] [address] [place] [address] Ravi Spaulding DO [address] [place] [address] Other Social History Tobacco Use Types Packs/Day Years Used Date Smoking Tobacco: Never Smokeless Tobacco: Never Alcohol Use Standard Drinks/Week Comments Yes 0 (1 standard drink = 0.6 oz pur e alcohol) AUDIT-C Answer Date Recorded Frequency of Alcohol Consumption Monthly or less 10/30/2019 Average Number of Drinks 1 or 2 020 Frequency of Binge Drinking Never 11/2019 PHQ-2 Answer Date Recorded PHQ-2 Score 1 12/24/2019 Comments No Sex and Gender Information Value Date Recorded Sex Assigned at Female 10/30/2019 4:05 PM UPHOLSTERY PARTS SORTER Legal Sex Female 7:47 PM CDT Gender Identity Female 10/30/2019 4:05 PM UPHOLSTERY PARTS SORTER Sexual Orientation Straight 10/30/2019 4: 05 PM UPHOLSTERY PARTS SORTER 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 [address] [place] [address] Geovanny Rocha [address] [place] [address] documented as of this encounter Visit Diagnoses Not on filedocumented in this encounter Additional Health Concerns Infection Onset Date Last Indicated Resolved Time COVID-19 Rule Out 12/16/2020 12/16/2020 12/16/2020 10:03 AM UPHOLSTERY PARTS SORTER COVID-19 Rule Out 12/16/2020 12/16/2020 12/17/2020 9:50 PM UPHOLSTERY PARTS SORTER COVID-19 Confirmed 12/16/2020 12/16/2020 12:33 AM CDT Assessment Noted Time PHQ-9 Depression Total Score: 2 12/24/19 20 8:47 AM UPHOLSTERY PARTS SORTER documented as of this encounter Care Teams Chilling Hood Operator Relationship Specialty Start Date End Date Ravi Spaulding DO [address] [place] [address] PCP - General FAMILY PRACTICE 12/24/19 documented as of this encounter
--- OUTSIDE RECORDS SUMMARY | 2025-06-30 16:50 | XMS_ITS | Encounter Summary ---
Author Organization [facility] Address [facility] [place] [address] Care Team Providers Care Probate Judge Name Role Phone Ravi Spaulding DO Primary Care Provider + Encounter Details Date Type Department Care Team (Late st Contact Info) Description 11/30/2022 [employer] Message Enc [facility] Medical Group Family & Internal Medicine 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 No / Unsure 11/10/2022 7:53 AM JEWEL CORNER BRUSHING MACHINE OPERATOR documented as of this encounter Plan of Treatment Upcoming Encounters Date Type Department Care Team (Late st Contact Info) Description 07/15/2025 7:20 AM CDT Office Visit [facility] Family & Internal Medicine - [place] [address] [place] [address] Ravi Spaulding DO [address] [place] [address] 09/29/2025 8:20 AM JEWEL CORNER BRUSHING MACHINE OPERATOR Office Visit [facility] Multispecialty Care - [facility] [address] [place] [address] Geovanny Rocha [address] [place] [address] documented as of this encounter Visit Diagnoses Not on filedocumented in this encounter Additional Health Concerns Assessment Noted Time PHQ-9 Depression Total Score: 1 08/11/20 22 8:42 AM CDT documented as of this encounter Care Teams Probate Judge Relationship Specialty Start Date End Date Ravi Spaulding DO [address] [place] [address] PCP - General FAMILY PRACTICE 12/24/19 documented as of this encounter
--- OUTSIDE RECORDS SUMMARY | 2025-06-30 16:50 | XMS_ITS | Encounter Summary ---
Author Organization [facility] Address [facility] [place] [address] Care Team Providers Care Sql Server Architect Name Role Phone Ravi Spaulding DO Primary Care Provider + Encounter Details Date Type Department Care Team (Late st Contact Info) Description 09/02/2024 KROG[employer] Message Enc [facility] Medical Group Family & Internal Medicine [facility] [address] [place] [address] Ravi Spaulding DO [address] [place] [address] Requested labs Social History Tobacco Use Types Packs/Day Years Used Date Smoking Tobacco: Never Passive Smoke Exposure: Never Smokeless Tobacco: Never Alcohol Use Standard Drinks/Week Comments Yes 0 (1 standard drink = 0.6 oz pur e alcohol) ON OCCASION AUDIT-C Answer Date Recorded Frequency of Alcohol Consumption Monthly or less 10/30/2019 Average Number of Drinks 1 or 2 020 Frequency of Binge Drinking Never 11/2019 PHQ-2 Answer Date Recorded Patient Health Questionnaire-2 Score 0 01/23/2024 Comments No Sex and Gender Information Value Date Recorded Sex Assigned at Female 10/30/2019 4:05 PM CUSTOMER CARE REPRESENTATIVE Legal Sex Female 7:47 PM CDT Gender Identity Female 10/30/2019 4:05 PM CUSTOMER CARE REPRESENTATIVE Sexual Orientation Straight 10/30/2019 4: 05 PM CUSTOMER CARE REPRESENTATIVE 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 file documented as of this encounter Plan of Treatment Upcoming Encounters Date Type Department Care Team (Late st Contact Info) Description 07/15/2025 7:20 AM CDT Office Visit [facility] Family & Internal Medicine - [place] [address] [place] [address] Ravi Spaulding DO [address] [place] [address] 09/29/2025 8:20 AM CUSTOMER CARE REPRESENTATIVE Office Visit [facility] Multispecialty Care - [facility] [address] [place] [address] Geovanny Rocha [address] [place] [address] documented as of this encounter Visit Diagnoses Not on filedocumented in this encounter Additional Health Concerns Assessment Noted Time PHQ-9 Depression Total Score: 1 08/11/20 22 8:42 AM CDT documented as of this encounter Care Teams Sql Server Architect Relationship Specialty Start Date End Date Ravi Spaulding DO [address] [place] [address] PCP - General FAMILY PRACTICE 12/24/19 documented as of this encounter
[2025-06-30 17:37] LABS: Hematocrit 39.9 % (37.0-47.0); Hemoglobin 12.6 g/dL (12.0-15.0); Immature Granulocyte Percent A 0.3 % (0-0.5); Lymphocytes Absolute Auto 5.02 K/mm3 (0.9-3.2); Mean Corpuscular HGB Conc 31.6 g/dl (32-36); Mean Corpuscular Hemoglobin 27.8 pg (26-34); Mean Corpuscular Volume 88.1 fl (80-100); Nucleated Red Blood Cells Absolute Auto 0.000 K/mm3 (0.0-0.012); Nucleated Red Blood Cells Perc 0.0 % (0.0-0.2); Platelet Count Result 333 k/mm3 (150-375); Red Blood Count 4.53 M/mm3 (4.2-5.4); White Blood Count 12.2 K/mm3 (4.5-10.0)
[2025-06-30 17:45] LABS: Iron 70 ug/dL (37-170)
[2025-06-30 17:46] LABS: Alanine Aminotransferase 68 U/L (6-35); Albumin Level 4.4 g/dL (3.5-5.1); Alkaline Phosphatase 84 U/L (38-126); Anion Gap 11 mmol/L (4-12); Aspartate Amino Transferase 42 U/L (14-36); Bilirubin,Total 0.3 mg/dL (0.2-1.3); Blood Urea Nitrogen 12 mg/dL (7-17); Calcium 9.7 mg/dL (8.4-10.2); Carbon Dioxide 26 mmol/L (22-30); Chloride 99 mmol/L (98-107); Estimated Glomerular Filt Rate > 60; Glucose 159 mg/dL (65-110); Potassium 4.2 mmol/L (3.4-5.0); Sodium 136 mmol/L (137-145); Total Protein 8.3 g/dL (6.3-8.2)
[2025-06-30 17:54] LABS: Percent Iron Saturation 20 % (20-50)
[2025-06-30 18:21] LABS: Ferritin 151.00 ng/mL (11.1-264)
[2025-06-30 18:53] LABS: Vitamin B12 712.0 pg/mL (239-931)
== END 2025-06-30 16:41 | disposition home or self-care (01) ==
LOC: ANHLAB 16:49
PROVIDERS: PCP Student in an Organized Health Care Education/Training Program; Visit Provider Internal Medicine Hematology & Oncology
DX: E53.8 Deficiency of other specified B group vitamins (principal); D64.9 Anemia, unspecified; E61.1 Iron deficiency
CPT/HCPCS: 36415; 80053; 82607; 82728; 82746; 83540; 83550; 83615; 85025

== ENCOUNTER 2025-09-05 09:06 | Outpatient (CLI) | payer OTHER, SELFPAY ==
[2025-09-05 10:31] LABS: INR 1.0; Prothrombin Time 13.7 Seconds (11.1-14.7)
[2025-09-05 11:09] LABS: Hepatitis B Surface Antigen Negative (Negative)
[2025-09-05 11:11] LABS: Ferritin 146.00 ng/mL (11.1-264)
[2025-09-05 11:14] LABS: HAV RESULT Negative (Negative); Hepatitis B Core IgM Result Negative (Negative)
[2025-09-06 07:08] LABS: GGT 37 IU/L (0-60)
[2025-09-08 07:09] LABS: ANA by IFA Rfx Titer/Pattern Positive (.)
== END 2025-09-05 09:07 | disposition home or self-care (01) ==
LOC: ANHLAB 09:08
PROVIDERS: PCP Student in an Organized Health Care Education/Training Program; Visit Provider Nurse Practitioner Family
DX: K76.0 Fatty (change of) liver, not elsewhere classified (principal); R10.12 Left upper quadrant pain
CPT/HCPCS: 36415; 80074; 82103; 82390; 82728; 82977; 85610; 86015; 86038

== ENCOUNTER 2025-09-15 16:46 | Outpatient (CLI) | payer OTHER, SELFPAY ==
--- OUTSIDE RECORDS SUMMARY | 2025-09-16 03:52 | XMS_ITS | Encounter Summary ---
Author Organization [facility] Address [facility] [place] [address] Care Team Providers Care Deputy Administrator Name Role Phone Ravi Spaulding DO Primary Care Provider + Encounter Details Date Type Department Care Team (Late st Contact Info) Description 09/07/2025 Results Follow-Up [facility] Medical Group Family & Internal Medicine [facility] [address] [place] [phone] Ravi Spaulding DO [address] [place] [address] MG SCREENING [facility] Social History Tobacco Use Types Packs/Day Years Used Date Smoking Tobacco: Never Passive Smoke Exposure: Never Smokeless Tobacco: Never Alcohol Use Standard Drinks/Week Comments Not Currently [...] Sex Assigned at Female 10/30/2019 4:05 PM HELPER CHICKEN FARM Legal Sex Female 7:47 PM CDT Gender Identity Female 10/30/2019 4:05 PM HELPER CHICKEN FARM Sexual Orientation Straight 10/30/2019 4: 05 PM HELPER CHICKEN FARM 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 file documented as of this encounter Plan of Treatment Upcoming Encounters Date Type Department Care Team (Late st Contact Info) Description 09/29/2025 8:20 AM HELPER CHICKEN FARM Office Visit [facility] Multispecialty Care - [facility] [address] [place] [address] Geovanny Rocha DO [address] [place] [address] 10/15/2025 7:00 AM HELPER CHICKEN FARM Office Visit [facility] Family & Internal Medicine - [address] [address] Ravi Spaulding DO [address] [place] [address] documented as of this encounter Visit Diagnoses Not on filedocumented in this encounter Additional Health Concerns Assessment Noted Time PHQ-9 Depression Total Score: 1 08/11/20 22 8:42 AM CDT documented as of this encounter Care Teams Deputy Administrator Relationship Specialty Start Date End Date Ravi Spaulding DO [address] [place] [address] PCP - General FAMILY PRACTICE 12/24/19 documented as of this encounter
--- OUTSIDE RECORDS SUMMARY | 2025-09-16 03:52 | XMS_ITS | Clinical Summary ---
Author Organization [facility] Address [address] [place] [address] Phone Care Team Providers Care Flat Locker Name Role Phone Ravi Spaulding Perfecto CASANOVA [...] 12/17/2023 Anemia 12/13/2023 Iron deficiency 12/13/2023 Hypertension Encounters Date Type Department Care Team Description 07/16/2025 8:00 AM CDT Office Visit [facility] [address] [phone] Constance Bloom, BROADCAST CORRESPONDENT, DOUGH PANNER Leukocytosis, unspecified type (Primary Dx); B12 deficiency; Iron deficiency 07/16/2025 Travel 07/13/2025 Telephone [facility] [address] [phone] Yeni Orellana MD from Last 3 Months Family History Medical History Relation Name Comments [...] on file Legal Sex Female 2:35 PM HEAD OF TALENT MANAGEMENT Gender Identity Not on file Sexual Orientation Not on file Last Filed Vital Signs Vital Sign Reading Time Taken Comments Blood Pressure 128/64 07/16/2025 7:58 AM CDT Pulse 92 07/16/2025 7:58 AM CDT Temperature 36.6 C (97.9 F) 07/16/2025 7:58 AM CDT Respiratory Rate 18 07/16/2025 7:58 AM CDT Oxygen Saturation 97% 07/16/2025 7:58 AM CDT Inhaled Oxygen Concentration - - Weight 101 kg (222 lb 9.6 oz) 07/16/2025 7:58 AM CDT Height 157.5 cm (5' 2) 07/16/2025 7:58 AM CDT Body Mass Index 40.71 07/16/2025 7:58 AM CDT Plan of Treatment Upcoming Encounters Date Type Department Care Team (Late st Contact Info) Description 01/13/2026 8:00 AM CDT Office Visit [facility] [address] [address] Yeni Orellana MD [address] [place] [address] Health Maintenance Due Date Last Done Comments Hepatitis B Immunization (1 of 3 - 19+ 3-dose series) 1992 HPV/Cotest 2003 Cologuard 2018 Colonoscopy 2018 Colorectal Cancer Screening 2018 Immunochemical Fecal Occult Blood 2018 Respiratory Syncytial Virus (RSV) Immunization (Adult) (1 - Risk 50-74 years 1-dose series) 2023 Cervical Cancer Screening (CCS) 03/18/2024 Pap Smear 03/18/2024 03/18/2021 Influenza Immunization (#1) 06/29/202507/29, 07/28/2024, 08/24/2023, Additional history exists SARS-COV-2 Immunization (2024- season) 2025 05/22/2022, 04/20/2022 Mammogram 08/16/2025 08/16/2024, 07/29, 08/19/2022, Additional history exists Hepatitis C Virus (HCV) Screening Completed 06/28/2022 Pneumococcal Immunization (50+ years) Completed 04/24/2024, 12/24/2019 Pneumococcal Immunization Combined Discontinued 04/24/2024, 12/24/2019 DTaP/Tdap/Td Immunization Discontinued 07/22/2024, TdaP Immunization Completed 07/22/2024, 04/25/2014 Zoster Immunization Completed 03/10/2025, Human Papillomavirus (HPV) Immunization Aged Out No longer eligible based on patient's age to complete this topic Meningococcal Immunization (ACWY) Aged Out No longer eligible based on patient's age to complete this topic Rotavirus Immunization Aged Out No lo nger eligible based on patient's age to complete this topic Insurance Care Teams Flat Locker Relationship Specialty Start Date End Date Ravi Spaulding DO [address] [place] [address] PCP - General Family Medicine 11/06/23 Yeni Orellana MD [address] [place] [address] Consulting Physician Oncology 11/06/23
--- OUTSIDE RECORDS SUMMARY | 2025-09-16 03:53 | XMS_ITS | Encounter Summary ---
Author Organization [facility] Address [address] [place] [address] Phone Care Team Providers Care Deck Officer Name Role Phone Ravi Spaulding DO Primary Care Provider + Yeni Orellana MD Unavailable Encounter Details Date Type Department Care Team (Late st Contact Info) Description 07/13/2025 Telephone [facility] [address] [place] [address] Yeni Orellana MD [address] [place] [address] Social History Tobacco Use Types Packs/Day Years Used Date Smoking Tobacco: Never Smokeless Tobacco: Never Alcohol Use Standard Drinks/Week Comments Never 0 (1 standard drink = 0.6 oz pur e alcohol) Comments Unknown Sex and Gender Information Value Date Recorded Sex Assigned at Not on file Legal Sex Female 2:35 PM HOME IMPROVEMENT INSTALLER Gender Identity Not on file Sexual Orientation Not on file documented as of this encounter Functional Status * Question Answer Date of Assessment Author Little interest or pleasure in doing things Not at all 07/16/2025 7:58 AM Lynda Soto R MA Feeling down, depressed, or hopeless Not at all 07/16/2025 7:58 AM SABIT Lynda Mendez R MA * Over the past 2 weeks, how often have you been bothered by any of the following problems? Question Answer Date of Assessment Author Patient Health Questionnaire -2 Score 0 07/16/2025 7:58 AM CDT Lynda Mendez R MA documented as of this encounter Plan of Treatment Upcoming Encounters Date Type Department Care Team (Late st Contact Info) Description 01/13/2026 8:00 AM CDT Office Visit [facility] [address] [phone] Yeni Orellana MD [address] [place] [phone] documented as of this encounter Visit Diagnoses Not on filedocumented in this encounter Care Teams Deck Officer Relationship Specialty Start Date End Date Ravi Spaulding DO [address] [place] [address] PCP - General Family Medicine 11/06/23 Yeni Orellana MD [address] [place] [address] Consulting Physician Oncology 11/06/23 documented as of this encounter
--- OUTSIDE RECORDS SUMMARY | 2025-09-16 03:53 | XMS_ITS | Encounter Summary ---
Author Organization [facility] Address [facility] [place] [address] Care Team Providers Care Spring Assembler Name Role Phone Ravi Spaulding DO Primary Care Provider + Encounter Details Date Type Department Care Team (Late st Contact Info) Description 11/30/2022 [employer] Message Enc [facility] Medical Group Family & Internal Medicine [facility] [address] [place] [address] Ravi Spaulding DO [address] [place] [address] Trulicity refill Social History Tobacco [...] Sex Assigned at Female 10/30/2019 4:05 PM PROJECT ENGINEERING MANAGER Legal Sex Female 7:47 PM CDT Gender Identity Female 10/30/2019 4:05 PM PROJECT ENGINEERING MANAGER Sexual Orientation Straight 10/30/2019 4: 05 PM PROJECT ENGINEERING MANAGER 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 No / Unsure 11/10/2022 7:53 AM PROJECT ENGINEERING MANAGER documented as of this encounter Plan of Treatment Upcoming Encounters Date Type Department Care Team (Late st Contact Info) Description 09/29/2025 8:20 AM PROJECT ENGINEERING MANAGER Office Visit [facility] Multispecialty Care - [facility] [address] [place] [address] Geovanny Rocha DO [address] [place] [address] 10/15/2025 7:00 AM PROJECT ENGINEERING MANAGER Office Visit [facility] Family & Internal Medicine [address] [address] Ravi Spaulding DO [address] [place] [address] documented as of this encounter Visit Diagnoses Not on filedocumented in this encounter Additional Health Concerns Assessment Noted Time PHQ-9 Depression Total Score: 1 08/11/20 22 8:42 AM CDT documented as of this encounter Care Teams Spring Assembler Relationship Specialty Start Date End Date Ravi Spaulding DO [address] [place] [address] PCP - General FAMILY PRACTICE 12/24/19 documented as of this encounter
--- OUTSIDE RECORDS SUMMARY | 2025-09-16 03:53 | XMS_ITS | Encounter Summary ---
Author Organization [facility] Address [facility] [place] [address] Care Team Providers Care Operations Officer Afloat Name Role Phone Ravi Spaulding DO Primary Care Provider + Encounter Details Date Type Department Care Team (Late st Contact Info) Description 12/10/2022 [employer] Message Enc [facility] Medical Group Family & Internal Medicine [facility] [address] [place] [phone] Ravi Spaulding DO [address] [place] [address] Iron supplement Social History Tobacco [...] Sex Assigned at Female 10/30/2019 4:05 PM SUBPOENA SERVER Legal Sex Female 7:47 PM CDT Gender Identity Female 10/30/2019 4:05 PM SUBPOENA SERVER Sexual Orientation Straight 10/30/2019 4: 05 PM SUBPOENA SERVER 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 No / Unsure 11/10/2022 7:53 AM SUBPOENA SERVER documented as of this encounter Plan of Treatment Upcoming Encounters Date Type Department Care Team (Late st Contact Info) Description 09/29/2025 8:20 AM SUBPOENA SERVER Office Visit [facility] Multispecialty Care - [facility] [address] [place] [address] Geovanny Rocha DO [address] [facility] [address] [address] [place] [address] 10/15/2025 7:00 AM SUBPOENA SERVER Office Visit [facility] Family & Internal Medicine [address] [address] Ravi Spaulding DO [address] [place] [address] documented as of this encounter Visit Diagnoses Not on filedocumented in this encounter Additional Health Concerns Assessment Noted Time PHQ-9 Depression Total Score: 1 08/11/20 22 8:42 AM CDT documented as of this encounter Care Teams Operations Officer Afloat Relationship Specialty Start Date End Date Ravi Spaulding DO [address] [place] [address] PCP - General FAMILY PRACTICE 12/24/19 documented as of this encounter
--- OUTSIDE RECORDS SUMMARY | 2025-09-16 03:54 | XMS_ITS | Encounter Summary ---
Author Organization [facility] Address [facility] [place] [address] Care Team Providers Care House Mover Name Role Phone Ravi Spaulding DO Primary Care Provider + Encounter Details Date Type Department Care Team (Late st Contact Info) Description 02/07/2022 [employer] Message Enc [facility] Medical Group Family & Internal Medicine [facility] [address] [place] [address] Ravi Spaulding DO [address] [place] [address] Jardiance Social History Tobacco Use [...] Sex Assigned at Female 10/30/2019 4:05 PM QA ARCHITECT Legal Sex Female 7:47 PM CDT Gender Identity Female 10/30/2019 4:05 PM QA ARCHITECT Sexual Orientation Straight 10/30/2019 4: 05 PM QA ARCHITECT Occupation Industry Job Start Date Job End [...] st Contact Info) Description 09/29/2025 8:20 AM QA ARCHITECT Office Visit [facility] Multispecialty Care - [facility] [address] [place] [phone] Geovanny Rocha DO [address] [facility] [address] [address] [place] [address] 10/15/2025 7:00 AM QA ARCHITECT Office Visit [facility] Family & Internal Medicine [address] [address] Ravi Spaulding DO [address] [place] [address] documented as of this encounter Visit Diagnoses Not on filedocumented in this encounter Additional Health Concerns Assessment Noted Time PHQ-9 Depression Total Score: 0 01/18/20 22 7:14 AM CDT documented as of this encounter Care Teams House Mover Relationship Specialty Start Date End Date Ravi Spaulding DO [address] [place] [address] PCP - General FAMILY PRACTICE 12/24/19 documented as of this encounter
--- OUTSIDE RECORDS SUMMARY | 2025-09-16 03:54 | XMS_ITS | Encounter Summary ---
Author Organization [facility] Address [facility] [place] [address] Care Team Providers Care Computerized Machine Fabric Cutter Name Role Phone Ravi Spaulding DO Primary Care Provider + Encounter Details Date Type Department Care Team (Late st Contact Info) Description 09/02/2024 Social & Loyal Message Enc [facility] Medical Group Family & Internal Medicine 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 file documented as of this encounter Plan of Treatment Upcoming Encounters Date Type Department Care Team (Late st Contact Info) Description 09/29/2025 8:20 AM CLEANING TEAM MEMBER Office Visit [facility] Multispecialty Care - [facility] [address] [place] [address] Geovanny Rocha DO [address] [place] [address] 10/15/2025 7:00 AM CLEANING TEAM MEMBER Office Visit [facility] Family & Internal Medicine - [address] [address] Ravi Spaulding DO [address] [place] [address] documented as of this encounter Visit Diagnoses Not on filedocumented in this encounter Additional Health Concerns Assessment Noted Time PHQ-9 Depression Total Score: 1 08/11/20 22 8:42 AM CDT documented as of this encounter Care Teams Computerized Machine Fabric Cutter Relationship Specialty Start Date End Date Ravi Spaulding DO [address] [place] [address] PCP - General FAMILY PRACTICE 12/24/19 documented as of this encounter
--- OUTSIDE RECORDS SUMMARY | 2025-09-16 03:54 | XMS_ITS | Encounter Summary ---
Author Organization [facility] Address [facility] [place] [address] Care Team Providers Care Clerical Assigner Name Role Phone Ravi Spaulding DO Primary Care Provider + Encounter Details Date Type Department Care Team (Late st Contact Info) Description 02/13/2022 [employer] Message Enc [facility] Medical Group Family & Internal Medicine [facility] [address] [place] [address] Ravi Spaulding DO [address] [place] [address] Cpap Social History Tobacco Use [...] Sex Assigned at Female 10/30/2019 4:05 PM HOISTING MACHINE OPERATOR Legal Sex Female 7:47 PM CDT Gender Identity Female 10/30/2019 4:05 PM HOISTING MACHINE OPERATOR Sexual Orientation Straight 10/30/2019 4: 05 PM HOISTING MACHINE OPERATOR Occupation Industry Job Start Date [...] st Contact Info) Description 09/29/2025 8:20 AM HOISTING MACHINE OPERATOR Office Visit [facility] Multispecialty Care - [facility] [address] [place] [address] Geovanny Rocha DO [address] [facility] [address] [place] [address] 10/15/2025 7:00 AM HOISTING MACHINE OPERATOR Office Visit [facility] Family & Internal Medicine [address] [address] Ravi Spaulding DO [address] [place] [address] documented as of this encounter Visit Diagnoses Not on filedocumented in this encounter Additional Health Concerns Assessment Noted Time PHQ-9 Depression Total Score: 0 01/18/20 22 7:14 AM CDT documented as of this encounter Care Teams Clerical Assigner Relationship Specialty Start Date End Date Ravi Spaulding DO [address] [place] [address] PCP - General FAMILY PRACTICE 12/24/19 documented as of this encounter
--- OUTSIDE RECORDS SUMMARY | 2025-09-16 03:54 | XMS_ITS | Encounter Summary ---
Author Organization [facility] Address [facility] [place] [address] Care Team Providers Care Records Technician Name Role Phone Ravi Spaulding DO Primary Care Provider + Encounter Details Date Type Department Care Team (Latest Contact Info) Description 07/15/2025 Results Follow-Up [facility] Medical Group Family & Internal Medicine [facility] [address] [place] [phone] Ravi Spaulding DO [address] [place] [address] HEMOGLOBIN, GLYCOSYLATED Social History Tobacco Use Types Packs/Day Years [...] Sex Assigned at Female 10/30/2019 4:05 PM CLINICAL DOCUMENTATION CLERK Legal Sex Female 7:47 PM CDT Gender Identity Female 10/30/2019 4:05 PM CLINICAL DOCUMENTATION CLERK Sexual Orientation Straight 10/30/2019 4: 05 PM CLINICAL DOCUMENTATION CLERK 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 file documented as of this encounter Plan of Treatment Upcoming Encounters Date Type Department Care Team (Late st Contact Info) Description 09/29/2025 8:20 AM CLINICAL DOCUMENTATION CLERK Office Visit [facility] Multispecialty Care - [facility] [address] [place] [address] Geovanny Rocha DO [address] [place] [address] 10/15/2025 7:00 AM CLINICAL DOCUMENTATION CLERK Office Visit [facility] Family & Internal Medicine - [address] [address] Ravi Spaulding DO [address] [place] [address] documented as of this encounter Visit Diagnoses Not on filedocumented in this encounter Additional Health Concerns Assessment Noted Time PHQ-9 Depression Total Score: 1 08/11/20 22 8:42 AM CDT documented as of this encounter Care Teams Records Technician Relationship Specialty Start Date End Date Ravi Spaulding DO [address] [place] [address] PCP - General FAMILY PRACTICE 12/24/19 documented as of this encounter
--- OUTSIDE RECORDS SUMMARY | 2025-09-16 03:54 | XMS_ITS | Clinical Summary ---
Author Organization [facility] Address [address] [place] [address] Care Team Providers Care Broadcast Director Operations Name Role Phone Carlos Eduardo Wong Primary Care Provider + Allergies No known active allergies Medications ferrous sulfate EC 325 (65 Fe) MG tabletIndications:I abbe deficiency TAKE 1 TABLET BY MOUTH EVERY DAY 30 tablet 2 3 Active vitamin D3 (CHOLECALCIFEROL) 25 mcg tablet Take 2 tablets (2,000 Units total) by mouth daily. Active Glucose Blood test stripIndications:Ty pe 2 diabetes mellitus with diabetic neuropathy, without long-term current use of insulin ([facility]) Check blood sugar once daily in AM when fasting 100 strip 11 4 Active Blood Glucose Monitoring Suppl (ONE TOUCH ULTRA 2) w/Device KitIndications:Type 2 diabetes mellitus with diabetic neuropathy, without long-term current use of insulin ([facility] HHS/[facility]) Check blood sugar once daily in AM when fasting 1 kit 4 Active Lancets (ONETOUCH ULTRASOFT) lancetsIndications: Type 2 diabetes mellitus with diabetic neuropathy, without long-term current use of insulin ([facility]) Check blood sugar once daily in AM when fasting 1 each 11 4 Active vitamin B-12 (CYANOCOBALAMIN) (CYANOCOBALAMIN) 1000 mcg tablet Take 1 tablet (1,000 mcg total) by mouth daily. Active lisinopril (PRINIVIL) 10 MG tabletIndications:H TN (hypertension) TAKE 1 TABLET BY MOUTH TWICE A DAY 180 tablet 3 5 Active glyBURIDE (DIABETA) 5 MG tabletIndications:T ype 2 diabetes mellitus with diabetic neuropathy, without long-term current use of insulin ([facility]) TAKE 2 TABLETS BY MOUTH IN THE MORNING AND 1 TABLET IN THE EVENING WITH MEALS 270 tablet 3 5 Active atorvastatin (LIPITOR) 10 MG tabletIndications:H yperlipidemia, unspecified hyperlipidemia type Take 1 tablet (10 mg total) by mouth nightly at bedtime. 90 tablet 3 5 Active metFORMIN (GLUCOPHAGE) 1000 MG tabletIndications:T ype 2 diabetes mellitus with diabetic neuropathy, without long-term current use of insulin ([facility]) TAKE 1 TABLET BY MOUTH TWICE A DAY WITH FOOD 60 tablet 2 5 Active dulaglutide (TRULICITY) 3 MG/0.5ML injectionIndication s:Type 2 diabetes mellitus with diabetic neuropathy, without long-term current use of insulin ([facility]) INJECT 3 MG UNDER THE SKIN ONCE PER WEEK 2 mL 2 5 Active Active Problems Problem Noted Date Diagnosed Date B12 deficiency 01/23/2024 Iron deficiency anemia, unspecified 12/17/2023 Vitamin D deficiency 06/07/2020 BMI 40.0-44.9, adult 05/17/2020 Type 2 diabetes mellitus wit h diabetic neuropathy, without long-term current use of insulin 10/06/2019 Elevated transaminase level 09/10/2017 Acid reflux 09/07/2017 Vasovagal syncope 10/09/2016 Locking finger joint 07/09/2015 Hypertension 01/09/2014 Hypercholesterolemia 01/09/2014 Obese 01/09/2014 Resolved Problems Problem Noted Date Diagnosed Date Resolved Date Toenail fungus 10/06/2019 01/19/2023 Encounters Date Type Department Care Team Description 09/07/2025 Results Follow-Up [facility] Medical Group Family & Internal Medicine [address] [address] Carlos Eduardo Wong P, DO MG SCREENING W [place]ELALEM MARK DIGI 09/05/2025 1:32 PM HISTOTECHNOLOGIST - 09/05/2025 11:59 PM [facility] Hospital Encounter [facility] Center Mammography [address] [place] [address] Referral, Self Discharge Disposition: Home or Self Care (Routine Discharge) 09/05/2025 Scan MG HEALTH INFO SRVCS Scanned, Doc Med Group Lab (SCAN) 09/05/2025 Travel 07/16/2025 Scan MG HEALTH INFO SRVCS Scanned, Doc Med Group 07/15/2025 7:20 AM CDT Office Visit [facility] Family & Internal Medicine [address] [address] Carlos Eduardo Wong, DO Diabetes (Routine follow up ); Hyperlipidemia (The patient had labs done for statin medication. ) 07/15/2025 Results Follow-Up [facility] [address] [address] Carlos Eduardo Wong, DO HEMOGLOBIN, GLYCOSYLATED 07/15/2025 Travel 06/30/2025 Scan HEALTH INFO SRVCS Scanned, Doc Med Group Lab (SCAN) from Last 3 Months Immunizations Immunization Administration [...] 04/25/2014 Family History Medical History Relation Comments Cancer Father Colon Cancer Father Diabetes Father Multiple Sclerosis Father Prostate Cancer Father COPD Mother Lung Cancer Paternal Grandfather Parkinson's Disease Paternal Grandmother Relation Status Comments Father Alive Mother Alive Paternal Grandfather Paternal Grandmother Social History Tobacco Use Types Packs/Day Years Used Date Smoking Tobacco: Never Passive Smoke Exposure: Never Smokeless Tobacco: Never Tobacco Cessation:Counseling Given: Yes Alcohol Use Standard Drinks/Week Comments Not Currently [...] Sex Assigned at Female 10/30/2019 4:05 PM HISTOTECHNOLOGIST Legal Sex Female 7:47 PM CDT Gender Identity Female 10/30/2019 4:05 PM HISTOTECHNOLOGIST Sexual Orientation Straight 10/30/2019 4: 05 PM HISTOTECHNOLOGIST 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 file Last Filed Vital Signs Vital Sign Reading Time Taken Comments Blood Pressure 116/64 07/15/2025 7:29 AM CDT Pulse 90 07/15/2025 7:29 AM CDT Temperature 36.7 C (98 F) 07/15/2025 7:29 AM CDT Respiratory Rate 16 07/15/2025 7:29 AM CDT Oxygen Saturation 98% 07/15/2025 7:29 AM CDT Inhaled Oxygen Concentration - - Weight 100.9 kg (222 lb 6.4 oz) 07/15/2025 7:29 AM CDT Height 157.5 cm (5' 2) 07/15/2025 7:29 AM CDT Body Mass Index 40.68 07/15/2025 7:29 AM CDT Plan of Treatment Upcoming Encounters Date Type Department Care Team (Late st Contact Info) Description 09/29/2025 8:20 AM HISTOTECHNOLOGIST Office Visit [facility] Medical Group Multispecialty Care - [address], [address] [place] [address] Geovanny Rocha DO [address] [place] [address] 10/15/2025 7:00 AM HISTOTECHNOLOGIST Office Visit [facility] Medical Group Family & Internal Medicine - [address] [address] Carlos Eduardo Wong, [address] [place] [address] Health Maintenance Due Date Last Done Comments Kidney Health Evaluation 1973 Hepatitis A Vaccines (1 of 2 - Risk 2-dose series) 1992 Hepatitis B Vaccines (1 of 3 - 19+ 3-dose series) 1992 Annual Physical 12/24/2020 12/24/2019 Lipid Panel 06/13/2023 06/13/2022, 08/0 12/2020, 11/26/2020, Additional history exists Cervical Cancer Screening Pap Smear (Age 30 to 64) Every 3 Years 03/18/2024 03/18/2021 Diabetes: Retinopathy Eye Exam 12/31/2024 01/01/2024, 12/12/2022, 09/08/2021, Additional history exists Influenza Adult (#1) 2025 08/08/2024, 07/28/2024, 07/30/2023, Additional history exists Hemoglobin A1C 01/12/2026 07/15/2025, 02/26, 12/05/2024, Additional history exists COVID-19 Vaccine (3 - Pfizer risk series) 03/10/2026 05/22/2022, 05/22/2022, 04/20/2022 Postponed from 06/19/2022 (Patient Refused) Cervical Cancer Screening Pap with HPV Testing (Age 30 to 64) Every 5 Years 03/18/2026 03/18/2021, 02/28/2018, 02/27/2018 Cervical Cancer Screening with HPV 03/18/2026 Mammogram Screening 09/05/2026 09/05/2025, 08/16/2024, 08/19/2022, Additional history exists Colorectal Cancer Screening Colonoscopy (10 Years) 05/06/2029 05/06/2024 DTaP, Tdap and Td Vaccines (3 - Td or Tdap) 07/22/2034 07/22/2024, 04/25/2014 Colorectal Cancer Screening FIT-DNA (3 Years) Discontinued 02/01/2022, 02/01/2022 Hepatitis C Completed 06/28/2022 Pneumococcal Vaccine: 50+ Years Completed 04/24/2024, 12/24/2019 PHQ-2 (Physician [place]) Completed 12/05/2024 Zoster Vaccines Completed 03/10/2025, 12/05/2024 [...] Procedure Name Priority Date/Time Associated Diagnosis Comments MG SCREENING W ZELALEM MARK DIGI Routine 09/05/2025 1:50 PM HISTOTECHNOLOGIST Encounter for screening mammogram for malignant neoplasm of breast OUTSIDE LAB (SCAN ORDER) 09/05/2025 OUTSIDE PT/INR (SCAN ORDER) 09/05/2025 OUTSIDE LAB (SCAN ORDER) 09/05/2025 OUTSIDE LAB (SCAN ORDER) 09/05/2025 OUTSIDE LAB (SCAN ORDER) 09/05/2025 COLLECT.CAPILLARY (FNGR,HEEL,EAR) Routine 07/15/2025 7:38 AM CDT Type 2 diabetes mellitus with diabetic neuropathy, without long-term current use of insulin ([facility] HHS/HCC) HEMOGLOBIN, GLYCOSYLATED Routine 07/15/2025 Type 2 diabetes mellitus with diabetic neuropathy, without long-term current use of insulin ([facility]/HCC HHS/HCC) OUTSIDE LAB (SCAN ORDER) 06/30/2025 COLONOSCOPY GENERIC (SCAN ORDER) 05/06/2024 DIABETIC RETINOPATHY [...] Recently Relevant to Health Maintenance Results * MG SCREENING W ZELALEM MARK DIGI (09/05/2025 1:50 PM HISTOTECHNOLOGIST) Anatomical Region Laterality Modality Breast Bilateral Mammography 09/07/2025 7:15 AM HISTOTECHNOLOGIST Impressions 09/07/2025 7:17 AM HISTOTECHNOLOGIST IMPRESSION: No suspicious mammographic findings. Recommendation: 1. Routine Screening, Bilateral Assessment: ACR BI-RADS 2 - BENIGN FINDING(S) Ordered By: CARLOS EDUARDO WONG Interpreted By: Clint Bruce, 09/07/2025 7:15 AM Narrative 09/07/2025 7:17 AM HISTOTECHNOLOGIST [address] [address] Examination: Screening bilateral mammogram Exam Date/Time: 09/05/2025 1:33 PM Clinical history: No current complaints. Comparison: 08/16/2024 Technique: Digital screening mammography of both breasts was performed. Breast tomosynthesis acquisitions were obtained and reviewed. This study was read with the assistance of a computer-aided detection system. Tissue density: There are scattered areas of fibroglandular density. Findings: No suspicious masses, malignant appearing calcifications, skin thickening or other abnormalities are present. No significant change from the prior exam. us Carlos Eduardo Wong DO MAMMO Final Re sult * OUTSIDE PT/INR (SCAN ORDER) (09/05/2025) 09/05/2025 Result [facility] Scanned SCANNING Final Resu lt * OUTSIDE LAB (SCAN ORDER) (09/05/2025) Only the most recent of5 resultswithin the time period is included. 09/05/2025 Result [facility] Scanned SCANNING Final Resu lt * HEMOGLOBIN, GLYCOSYLATED (07/15/2025) HGB A1C 6.8 % [facility] 07/15/2025 Result [facility] Carlos Eduardo Wong DO LABORATORY Final Re sult Performing Organization Address [facility] Co de Phone Number [facility] [address] [place] [address], [place] * COLONOSCOPY GENERIC (SCAN ORDER) (05/06/2024) 05/06/2024 Result [facility] Scanned SCANNING Final Resu lt * DIABETIC RETINOPATHY EXAM (POSITIVE) (01/01/2024) Result [facility] Scanned SCANNING Final Resu lt Performing Organization Address [facility] de Phone Number HS ONBASE * HEPATITIS C ANTIBODY W/RFX TO [...] a test for HCV RNA (test code 15996) is suggested. For additional information please refer to http://education.Whimseybox.Ecoviate/faq/TLO59g2 (This link is being provided for informational/ educational purposes only.) 06/28/2022 7:22 AM CDT 06/29/2022 9:11 AM CDT Carlos Eduardo Wong DO LABORATORY Final Re sult [facility] [address] [place] [address] * (ABNORMAL) LIPID PANEL (06/13/2022 7:15 AM [...] equation in the estimation of LDL-C. Iam SS et al. ANÍBAL. 2013;310(19): 7472-7605 (http://education.Munchkin Fun.Ecoviate/faq/OIO461) CHOL/HDL RATIO 3.8 <5.0 (calc) [facility] [...] Final Re sult [facility] [address] [address] * COLOGUARD (EXACT SCIENCE) (02/01/2022 7:23 AM CDT) COLOGUARD RESULT Negative Negative [facility] [employer] (CLIA #:[id number]) Comment: NEGATIVE TEST RESULT. A negative Cologuard [...] screened with both Cologuard and colonoscopy. (Renae Alas et al, N Engl J Med 2014;370(14):3114-4992) The normal value (reference range) for this assay is negative. COLOGUARD RE-SCREENING RECOMMENDATION: Periodic colorectal cancer screening is an important part of preventive healthcare for asymptomatic individuals at average risk for colorectal cancer. Following a negative Cologuard result, the [place] [employer] Society and U.S. Multi-Society Task Force screening guidelines recommend a Cologuard re-screening interval of 3 years. References: [place] [employer] Guideline for Colorectal Cancer Screening: https://www.cancer.org/cancer/simyl-lzecgx-unpwic/pxplstfku-bylabvthu-qhatglx/ac s-rec ommendations.html.; Teja DK, Eugenio CR, Hair SuárezK, Colorectal Cancer Screening: Recommendations for Physicians and Patients from the U.S. Multi-Society Task Force on Colorectal Cancer Screening , Am J Gastroenterology 2017; 112:4748-5386. TEST DESCRIPTION: Composite algorithmic analysis of stool [...] screened with both Cologuard and colonoscopy. (Renae Grossman al, N Engl J Med 2014;370(14):7306-4346.) Cologuard may produce a false negative or false positive result (no colorectal cancer or precancerous polyp present at colonoscopy follow up). A negative Cologuard test result does not guarantee the absence of CRC or advanced adenoma (pre-cancer). The current Cologuard screening interval is every 3 years. ([place] [employer] Society and U.S. Multi-Society Task Force). Cologuard performance data in a 10,000 patient pivotal study using colonoscopy as the reference method can be accessed at the following location: www.SmashChart.Ecoviate/results. Additional description of the Cologuard test process, warnings and precautions can be found at www.ProntoFormsogApruverd.com. STOOL STOOL SPECIMEN / Unknown 02/01/2022 7:23 AM CDT 02/02/2022 11:57 AM CDT us Carlos Eduardo Wong DO BODY FLUIDS AND STOOLS O RDERABLES Final Result [facility] [employer] [address] [place] [address], [facility] (CLIA #:[id number]) [address] [address] * HPV MRNA E6/E7 (03/18/2021 8:31 AM CDT) HPV MRNA E6/E7 Not Detected Not Detected [facility] Comment: Methodology: [place] Sander-Mediated Amplification This assay detects E6/E7 viral messenger RNA (mRNA) from 14 high-risk HPV types (16,18,31,33,35,39,45,51,52,56,58,59,66,68). The analytical performance characteristics of this assay have been determined by [employer]. The modifications have not been cleared or approved by the FDA. This assay has been validated pursuant to the CLIA regulations and is used for clinical purposes. For additional information, please refer to http://education.[employer]./faq/XII921k8 (This link if provided for information/ educational purposes only.) 03/18/2021 8:31 AM CDT 03/21/2021 11:37 AM CDT [facility] BARTON PATHOLOGY/CYTOLOGY ORDERABL ES Final Result [facility] [address] [place] [address] * Cytopath Cerv/Vag Thin Layer (03/18/2021 8:31 AM CDT) CLINICAL INFORMATION: REGULAR [facility] Clinical Information: 01/2021 [facility] Date of Last Pap INFORMATION NOT PROVIDED [facility] Previous Biopsy? INFORMATION NOT PROVIDED [facility] SOURCE (QST) Cervix, Endocervix [facility] STATEMENT OF ADEQUACY: [facility] Comment: Satisfactory for evaluation. Endocervical/transformation zone component present. PAP INTERPRETATION/RESU LTS Negative for intraepithelial lesion or malignancy. [facility] ASSISTANT PROFESSOR OF NURSING [facility] Comment: MMW, CT(ASCP) CT screening location: [place] [address] [place] [address] COMMENT: [facility] Comment: EXPLANATORY NOTE: The Pap [...] 8:31 AM CDT 03/21/2021 11:37 AM CDT us Ariadna BARTON PATHOLOGY/CYTOLOGY ORDERABL ES Final Result [facility] [address] [place] [address] from Last 3 Months or Most Recently Relevant to Health Maintenance Insurance [employer] Care Teams Broadcast Director Operations Relationship Specialty Start Date End Date Carlos Eduardo Wong DO [address] [place] [address] PCP - General FAMILY PRACTICE 12/24/19
--- OUTSIDE RECORDS SUMMARY | 2025-09-16 03:54 | XMS_ITS | Encounter Summary ---
Author Organization [facility] Address [facility] [place] [address] Care Team Providers Care Dye Reel Operator Helper Name Role Phone Ravi Spaulding DO Primary Care Provider + Encounter Details Date Type Department Care Team (Late st Contact Info) Description 07/07/2020 Glopho Message Enc [facility] Medical Group Family & Internal Medicine [facility] [address] [place] [address] Ravi Spaulding DO [address] [place] [address] Other Social History Tobacco Use [...] Sex Assigned at Female 10/30/2019 4:05 PM TYPEWRITER REPAIRER Legal Sex Female 7:47 PM CDT Gender Identity Female 10/30/2019 4:05 PM TYPEWRITER REPAIRER Sexual Orientation Straight 10/30/2019 4: 05 PM TYPEWRITER REPAIRER 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 file documented as of this encounter Plan of Treatment Upcoming Encounters Date Type Department Care Team (Late st Contact Info) Description 09/29/2025 8:20 AM TYPEWRITER REPAIRER Office Visit [facility] Medical [facility] - [facility] [address] [place] [address] Aj Migueladele [address] [facility] [address] [place] [address] 10/15/2025 7:00 AM TYPEWRITER REPAIRER Office Visit [facility] - [place] [address] [place] [address] Ravi Spaulding DO [address] [place] [address] documented as of this encounter Visit Diagnoses Not on filedocumented in this encounter Additional Health Concerns Infection Onset Date Last Indicated Resolved Time COVID-19 Rule Out 12/16/2020 12/16/2020 12/16/2020 10:03 AM TYPEWRITER REPAIRER COVID-19 Rule Out 12/16/2020 12/16/2020 12/17/2020 9:50 PM TYPEWRITER REPAIRER COVID-19 Confirmed 12/16/2020 12/16/2020 12:33 AM CDT Assessment Noted Time PHQ-9 Depression Total Score: 2 12/24/19 20 8:47 AM TYPEWRITER REPAIRER documented as of this encounter Care Teams Dye Reel Operator Helper Relationship Specialty [place] [address] [place] [id number] PCP - General FAMILY PRACTICE 12/24/19 documented as of this encounter
== END 2025-09-15 16:47 | disposition home or self-care (01) ==
LOC: ANHLAB 16:48
PROVIDERS: PCP Student in an Organized Health Care Education/Training Program; Visit Provider Nurse Practitioner Family
DX: K76.0 Fatty (change of) liver, not elsewhere classified (principal)
CPT/HCPCS: 86381